=== PATIENT | female | born 1945 | race Caucasian/White ===

== ENCOUNTER 2017-04-04 12:15 | Emergency (ER) | payer MEDICARE, OTHER ==
[2017-04-04] MEDS ORDERED: Metoclopramide 10 MG/2 ML SDV IVPUSH STA (12:54)
[2017-04-04] MEDS ORDERED: HYDROmorphone 1 MG/ML Syringe IVPUSH ONE (13:04)
--- NOTE | 2017-04-04 13:05 | EDM.PDOC ---
ED HPI GENERAL MEDICAL PROBLEM - General Chief Complaint: Lower Extremity Injury/Pain Stated Complaint: [facility] Time Seen by Provider: 04/04/17 12:40 Source of Information: Reports: Patient, Family (daughter) History Limitations: Reports: No Limitations - History of Present Illness INITIAL COMMENTS - FREE TEXT/NARRATIVE: 71-year-old female brought to the hospital by ambulance after she slipped and fell in the parking lot [place]. She fell on the ice to the ground landing she believes on her left medial knee and thigh. This resulted in a severe pain and obvious deformity to the left mid femur. He was unable to get up from the pavement and annulus was summoned by passers by. Patient is a hemodialysis patient. She has insulin-dependent diabetic for 12 years. She denies hitting her head or losing consciousness. She denies any pain in her ribs upper or lower back. Pain is localized to the left thigh. Paramedics had difficulty starting an IV. They did give her fentanyl intranasally. Patient started to have projectile vomiting while in the ED. IV established right hand. Given fentanyl 7.5 mg IV. Onset: Today Onset Date: 04/04/17 Onset Time: 12:00 Duration: Minutes: Location: Reports: Lower Extremity, Left (Obvious deformity left mid shaft of femur.) Quality: Reports: Ache, Sharp, Stabbing Severity: Severe (10 out of 10 pain.) Improves with: Reports: None Worsens with: Reports: Movement Context: Reports: Trauma (Slipped and fell in parking lot on icy surface.). Denies: Activity, Exercise, Lifting, Sick Contact Treatments HAMMERER HELPER: Reports: Other (see below) Other Treatments HAMMERER HELPER: Fentanyl 50 mcg intranasal Left Upper Leg Pain Score (Numeric/FACES): 9 - Related Data Allergies Allergy/AdvReac Type Severity Reaction Status Date / Time NSAIDS (Non-Steroidal Allergy Other Verified 04/04/17 12:23 Anti-Inflamma Past Medical History HEENT History: Reports: Cataract Cardiovascular History: Reports: High Cholesterol, Hypertension Gastrointestinal History: Reports: Cholelithiasis (Previous cholecystectomy.), Other (See Below) (Previous gastric bypass Cody-en-Y procedure.) Genitourinary History: Reports: Dialysis, Other (See Below) (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 She is currently on the waiting list for a another kidney.) Musculoskeletal History: Reports: Back Pain, Chronic, Osteoarthritis, Osteoporosis Endocrine/Metabolic History: Reports: Diabetes, Type II Hematologic History: Reports: Anemia (Secondary to renal failure.) Social & Family History - Living Situation & Occupation Living situation: Reports: Occupation: Retired Review of Systems - Review of Systems Review Of Systems: See Below Constitutional: Reports: Weakness. Denies: Chills, Diaphoresis, Fever Eyes: Reports: Other (Does have some diabetic retinopathy.) Ears: Reports: No Symptoms Nose: Reports: No Symptoms Mouth/Throat: Reports: No Symptoms Respiratory: Reports: Shortness of Breath (Chronically dyspneic. Usually with exertion. No orthopnea or PND). Denies: Cough, Sputum Cardiovascular: Reports: Edema. Denies: Chest Pain, Irregular Heart Rate (Mild in the lower extremities.), Lightheadedness, Palpitations, Syncope GI/Abdominal: Denies: Abdominal Pain, Decreased Appetite Genitourinary: Reports: Other (Still makes a small amount of urine daily she estimates less than half a cup.) Musculoskeletal: Reports: Back Pain, Joint Pain (Knees hips and currently severe pain left thigh.) Skin: Reports: Pallor Neurological: Reports: No Symptoms Psychiatric: Reports: No Symptoms ED EXAM, GENERAL - Physical Exam Exam: See Below Exam Limited By: No Limitations General Appearance: Alert, Moderate Distress (Insignificant amount of pain. Also vomiting during my examination.) Throat/Mouth: Normal Inspection, Normal Oropharynx. No: Normal Lips Head: Atraumatic, Normocephalic, Other (No signs of trauma to the head or neck.) Neck: Normal Inspection, Limited Range of Motion. No: Supple, Lymphadenopathy ( L), Lymphadenopathy (R), Tender Lateral, Tender Midline Respiratory/Chest: Lungs Clear ( good deep breaths.), Respiratory Distress, Decreased Breath Sounds (Mild tachypnea at rest. Decreased breath sounds the posterior 25% lung payne bilaterally. Patient is not taking really) Cardiovascular: Regular Rate, Rhythm, No Gallop, No Murmur, No Rub, Other ( Trace edema around the ankles. Pulses are barely palpable in her feet but they are quite cool to touch as well.). No: Normal Peripheral Pulses Peripheral Pulses: 1+: Posterior Tibial (L), Posterior Tibial (R), Dorsalis Pedis (L), Dorsalis Pedis (R) GI/Abdominal: Distended (Mildly tympanitic to percussion upper abdomen compatible with some aerophagia. Bruising abdominal wall from insulin injection sites.), Abnormal Bowel Sounds (Hypoactive bowel sounds.), Other (Abdomen is obese. There is evidence of multiple surgical procedures. She reports cholecystectomy appendectomy midline lower infraumbilical incision for C- section she's also had a Cody-en-Y gastric bypass procedure in the past.) (Female) Exam: Normal External Exam Back Exam: Other (No palpable deformities on palpation of thoracic and lumbar spine.) Extremities: Pedal Edema (Trace bilaterally), Other (Obvious deformity left femur with evidence of fracture mid shaft with 45 angulation. Any movement causes severe pain.) Neurological: Alert, Oriented, CN II-XII Intact, Normal Cognition, Other Skin Exam: Warm, Dry (Unable to move her left leg at all due to pain.), Intact, Pallor (Mild pallor.) EKG INTERPRETATION EKG Date: 04/04/17 Course - Vital Signs Last Recorded V/S: Last Vital Signs Temp 36.2 C 04/04/17 12:23 Pulse 83 04/04/17 12:23 Resp 20 04/04/17 12:23 BP 140/66 04/04/17 12:23 Pulse Ox 80 L 04/04/17 12:23 - Orders/Labs/Meds Orders: Active Orders 24 hr Category Date Time Status EKG Documentation Completion [RC] STAT Care 04/04/17 13:01 Active Oxygen Therapy [RC] ASDIRECTED Care 04/04/17 13:02 Active Chest 1V Frontal [CR] Stat Exams 04/04/17 13:00 Taken Femur Min 2V Lt [CR] Stat Exams 04/04/17 13:03 Taken ABO/RH TYPE [BBK] Stat Lab 04/04/17 13:26 Received Sodium Chloride 0.9% [Normal Saline] 1,000 ml Med 04/04/17 13:15 Active IV ASDIRECTED Medication Orders Sodium Chloride (Normal Saline) 1,000 mls @ 75 mls/hr IV ASDIRECTED JANI Labs: Laboratory Tests 04/04/17 04/04/17 04/04/17 Range/Units 13:26 13:26 13:26 WBC 7.43 (3.98-10.04) K/mm3 RBC 3.12 L (3.98-5.22) M/mm3 Hgb 10.0 L (11.2-15.7) gm/L Hct 32.3 L (34.1-44.9) % MCV 103.5 H (79.4-94.8) fl MCH 32.1 (25.6-32.2) pg MCHC 31.0 L (32.2-35.5) g/dl RDW Std Deviation 56.6 H (36.4-46.3) fL Plt Count 216 (182-369) K/mm3 MPV 9.2 L (9.4-12.3) fl Neutrophils % (Manual) 61 H (40-60) % Band Neutrophils % 3 (0-10) % Lymphocytes % (Manual) 28 (20-40) % Atypical Lymphs % 0 % Monocytes % (Manual) 4 (2-10) % Eosinophils % (Manual) 4 (0.7-5.8) % Basophils % (Manual) 0 L (0.1-1.2) Platelet Estimate Adequate Polychromasia 1+ slight Anisocytosis 1+ slight Macrocytosis 1+ slight RBC Morph Comment Not Reportable PT 10.6 (8.0-13.0) SECONDS INR 0.97 Sodium 143 (136-145) mEq/L Potassium 4.5 (3.5-5.1) mEq/L Chloride 104 (98-107) mEq/L Carbon Dioxide 30 (21-32) mEq/L Anion Gap 13.5 (5-15) BUN 23 H (7-18) mg/dL Creatinine 3.6 H (0.55-1.02) mg/dL Est Cr Clr Drug Dosing 13.81 mL/min Estimated GFR (MDRD) 13 (>60) mL/min BUN/Creatinine Ratio 6.4 L (14-18) Glucose 117 H (80-115) mg/dL Calcium 8.2 L (8.5-10.1) mg/dL Phosphorus 4.7 (2.6-4.7) mg/dL Magnesium 1.9 (1.8-2.4) mg/dl Total Bilirubin 0.5 (0.2-1.0) mg/dL AST 19 (15-37) U/L ALT 20 (14-59) U/L Alkaline Phosphatase 116 (46-116) U/L Total Protein 6.8 (6.4-8.2) g/dl Albumin 3.3 L (3.4-5.0) g/dl Globulin 3.5 gm/dL Albumin/Globulin Ratio 0.9 L (1-2) Blood Type 04/04/17 Range/Units 13:26 WBC (3.98-10.04) K/mm3 RBC (3.98-5.22) M/mm3 Hgb (11.2-15.7) gm/L Hct (34.1-44.9) % MCV (79.4-94.8) fl MCH (25.6-32.2) pg MCHC (32.2-35.5) g/dl RDW Std Deviation (36.4-46.3) fL Plt Count (182-369) K/mm3 MPV (9.4-12.3) fl Neutrophils % (Manual) (40-60) % Band Neutrophils % (0-10) % Lymphocytes % (Manual) (20-40) % Atypical Lymphs % % Monocytes % (Manual) (2-10) % Eosinophils % (Manual) (0.7-5.8) % Basophils % (Manual) (0.1-1.2) Platelet Estimate Polychromasia Anisocytosis Macrocytosis RBC Morph Comment PT (8.0-13.0) SECONDS INR Sodium (136-145) mEq/L Potassium (3.5-5.1) mEq/L Chloride (98-107) mEq/L Carbon Dioxide (21-32) mEq/L Anion Gap (5-15) BUN (7-18) mg/dL Creatinine (0.55-1.02) mg/dL Est Cr Clr Drug Dosing mL/min Estimated GFR (MDRD) (>60) mL/min BUN/Creatinine Ratio (14-18) Glucose (80-115) mg/dL Calcium (8.5-10.1) mg/dL Phosphorus (2.6-4.7) mg/dL Magnesium (1.8-2.4) mg/dl Total Bilirubin (0.2-1.0) mg/dL AST (15-37) U/L ALT (14-59) U/L Alkaline Phosphatase (46-116) U/L Total Protein (6.4-8.2) g/dl Albumin (3.4-5.0) g/dl Globulin gm/dL Albumin/Globulin Ratio (1-2) Blood Type A POSITIVE Meds: Medications Generic Name Dose Route Start Last Admin Trade Name Freq PRN Reason Stop Dose Admin Sodium Chloride 1,000 mls @ 75 mls/hr 04/04/17 13:15 Normal Saline IV ASDIRECTED JANI Discontinued Medications Generic Name Dose Route Start Last Admin Trade Name Freq PRN Reason Stop Dose Admin Hydromorphone HCl 1 mg 04/04/17 13:04 04/04/17 13:05 Dilaudid IVPUSH 04/04/17 13:05 1 mg ONETIME ONE Administration Metoclopramide HCl 10 mg 04/04/17 12:54 04/04/17 13:00 Reglan IVPUSH 04/04/17 12:55 10 mg ONETIME STA Administration - Radiology Interpretation Free Text/Narrative:: 71-year-old female whom is a hemodialysis patient and an insulin-dependent diabetic for about 12 years presents to the ED after [place] falling [place] at the [facility]. She landed she believes on her left knee and felt a snap and terrible pain in her left femur. She was unable to get up from the icy surface. She did not hit her head and there was no loss of consciousness. She denies any neck pain or upper or lower back pain at the time of my exam. She has had in intranasal fentanyl administered by paramedics for pain relief. Unfortunately did she develop nausea and vomiting detention through my examination. IV was started in her right hand as her veins are tenuous at best. She was given Reglan 7.5 mg IV and will have to be given Dilaudid 1 mg IV for further pain relief. One view chest x-ray ECG and preoperative lab work will be done as well as two-view x-ray of the femur left side. Due to her being a hemodialysis patient she will require transfer to [place] for definitive management. She receives care through the [facility] system. - Re-Assessments/Exams Free Text/Narrative Re-Assessment/Exam: 04/04/12:50: Labs reveal a white count of 7.43 with 61% neutrophils and 3% band cells. Hemoglobin is low at 10.0 with hematocrit of 32.3. MCV is elevated at 103.5 by with her renal disease. Platelets are normal at 216,000. PT is 10.6 INR 0.97. Sodium is 143. Potassium 4.5. Chloride 104. Bicarbonate 30. Anion gap 13.5. The urine is 23. Creatinine is 3.6. EGFR is 13. Glucose is 117 calcium 8.2. Initially a 1.9. Phosphorus 4.7. Liver function normal albumin fraction slightly low at 3.3. Blood type is a positive. 04/04/17 14:30: Spoke with Dr. Cox -hospitalist at [facility] in [place] and he is accepted care. I also did speak with Dr. Huddleston demolition specialist orthopedic surgeon of course identified need for surgical repair. She is quite concrete this time after the last dose of intravenous narcotic. She will be transferred by ground ambulance. Daughter will collect her belongings and her vehicle from the [facility] and then travel to [facility] in [place], [place]. Departure - Departure Time of Disposition: 14:54 Disposition: DC/Tfer to Acute Hospital 02 Condition: Serious Clinical Impression: End stage renal failure on dialysis, Insulin dependent diabetes mellitus Femur fracture, left Qualifiers: Encounter type: initial encounter Femur location: distal Fracture type: closed Fracture morphology: other fracture Qualified Code(s): S72.492A - Other fracture of lower end of left femur, initial encounter for closed fracture Anemia Qualifiers: Anemia type: due to chronic kidney disease - Discharge Information Forms: ED Department Discharge Additional Instructions: 71-year-old female presents to the ED after slipping and falling in the parking lot at the [facility]. She has suffered a fracture of her distal left femur which is closed. However the fractures above the left total knee prosthesis she is also a hemodialysis patient and will require dialysis tomorrow. She is a type II diabetic using insulin for diabetic control. Transferred to [facility] where she receives care under the hospitalist . - My Orders Last 24 Hours: My Active Orders 04/04/17 13:00 Chest 1V Frontal [CR] Stat 04/04/17 13:01 EKG Documentation Completion [RC] STAT 04/04/17 13:02 Oxygen Therapy [RC] ASDIRECTED 04/04/17 13:03 Femur Min 2V Lt [CR] Stat 04/04/17 13:15 Sodium Chloride 0.9% [Normal Saline] 1,000 ml IV ASDIRECTED 04/04/17 13:26 ABO/RH TYPE [BBK] Stat - Assessment/Plan Last 24 Hours: My Active Orders 04/04/17 13:00 Chest 1V Frontal [CR] Stat 04/04/17 13:01 EKG Documentation Completion [RC] STAT 04/04/17 13:02 Oxygen Therapy [RC] ASDIRECTED 04/04/17 13:03 Femur Min 2V Lt [CR] Stat 04/04/17 13:15 Sodium Chloride 0.9% [Normal Saline] 1,000 ml IV ASDIRECTED 04/04/17 13:26 ABO/RH TYPE [BBK] Stat
[2017-04-04] MEDS ORDERED: Sodium Chloride 0.9% 1,000 ML IV SCH (13:15)
--- NOTE | 2017-04-04 15:57 | CR ---
Left femur: Two views of the left femur were obtained. Displaced fracture identified within the distal femur slightly above a left knee prosthesis. Displacement by a shaft width is seen. No additional fracture is seen within the femur. Mild joint space narrowing is noted within the left hip. Impression: 1. Displaced distal femur fracture. Diagnostic code #3
--- NOTE | 2017-04-04 15:57 | CR ---
Chest: Supine view of the chest was obtained. Comparison: No previous study. Poor inspiratory film is noted. Increased density is noted behind the left heart. Areas of atelectasis are noted within both midlungs. Heart size and mediastinum are within normal limits for supine technique. Bony structures are grossly intact. Impression: 1. Poor inspiratory study. 2. Parenchymal density behind the left heart. Difficult to exclude pneumonia. If no infectious symptoms are present this could represent an area of scarring from aspiration. 3. Atelectasis within both midlungs. Diagnostic code #3
== END 2017-04-04 15:02 ==
LOC: JD.ED 12:15
DX: S72.492A Other fracture of lower end of left femur, initial encounter for closed fracture (principal); E11.22 Type 2 diabetes mellitus with diabetic chronic kidney disease; N18.6 End stage renal disease; D63.1 Anemia in chronic kidney disease; E78.00 Pure hypercholesterolemia, unspecified; I10 Essential (primary) hypertension; Z88.8 Allergy status to other drugs, medicaments and biological substances; W01.0XXA Fall on same level from slipping, tripping and stumbling without subsequent striking against object, initial encounter
CPT/HCPCS: 36415; 71045; 73552; 80053; 83735; 84100; 85025; 85610; 86900; 86901; 96374; 96375; 99285; J1170; J2765

== ENCOUNTER 2019-09-14 08:47 | Emergency (ER) | payer MEDICARE, OTHER, MEDICAID ==
--- NOTE | 2019-09-14 09:00 | EDM.PDOC ---
ED HPI GENERAL MEDICAL PROBLEM - General Chief Complaint: Trauma Stated Complaint: [facility] Time Seen by Provider: 09/14/19 08:53 Source of Information: Reports: Patient, EMS History Limitations: Reports: No Limitations - History of Present Illness INITIAL COMMENTS - FREE TEXT/NARRATIVE: The patient presents by [facility] for a fall. She stood up from her w heel chair and she was going to move it out of a hole it got in and she turned and fell. She has pain to her right hip and right wrist. She is on 2 blood thinners. She does not think she hit her head. She has no headache, neck pain, chest pain or abdominal pain. She has diabetes and has a history of renal failure with dialysis. She had a kidney transplant over 2 years ago. Onset: Sudden Duration: Minutes: Location: Reports: Upper Extremity, Right (wrist), Lower Extremity, Right (hip) Quality: Reports: Sharp Severity: Moderate Improves with: Reports: Immobilization Worsens with: Reports: Movement Context: Reports: Trauma Associated Symptoms: Reports: No Other Symptoms Right Hip Pain Score (Numeric/FACES): 7 - Related Data Allergies Allergy/AdvReac Type Severity Reaction Status Date / Time NSAIDS (Non-Steroidal Allergy Other Verified 09/14/19 09:03 Anti-Inflamma Home Meds: Home Meds Docusate Sodium [Dulcolax Stool Softener] 100 mg PO BID PRN 04/04/17 [History] Gabapentin [Neurontin] 300 mg PO DAILY 04/04/17 [History] Sertraline [Zoloft] 25 mg PO DAILY 04/04/17 [History] atorvaSTATin [Lipitor] 40 mg PO DAILY 04/04/17 [History] diphenhydrAMINE [Benadryl] 50 mg PO BEDTIME PRN 04/04/17 [History] Acetaminophen [Tylenol] 650 mg PO Q6H PRN 09/16/18 [History] Albuterol [Ventolin HFA] 2 puff INH Q4H PRN 09/16/18 [History] Apixaban [Eliquis] 2.5 mg PO BID 09/16/18 [History] Benzonatate 100 mg PO QID PRN 09/16/18 [History] Clopidogrel Bisulfate [Clopidogrel] 75 mg PO DAILY 09/16/18 [History] Cyclobenzaprine [Flexeril] 5 mg PO TID PRN 09/16/18 [History] Fluticasone Propionate [Flonase] 1 dose NASBOTH BID 09/16/18 [History] Ipratropium [Atrovent 0.06% Nasal [place]] 2 spray NASBOTH TID 09/16/18 [History] Latanoprost 1 drop EYEBOTH DAILY 09/16/18 [History] Levothyroxine Sodium 137 mcg PO DAILY 09/16/18 [History] Melatonin 10 mg PO DAILY 09/16/18 [History] Metoclopramide HCl 5 mg PO QID PRN 09/16/18 [History] Pantoprazole Sodium 40 mg PO DAILY 09/16/18 [History] Sulfamethoxazole/Trimethoprim [Bactrim Ds Tablet] 1 tab PO DAILY 09/16/18 [His tory] Tacrolimus 1.5 mg PO BID 09/16/18 [History] Timolol Maleate 1 drop EYEBOTH BEDTIME 09/16/18 [History] azaTHIOprine [Imuran] 150 mg PO DAILY 09/16/18 [History] carvediloL [Carvedilol] 12.5 mg PO BID 09/16/18 [History] ondansetron HCL [Zofran] 4 mg PO Q4H PRN 09/16/18 [History] predniSONE [Prednisone] 5 mg PO DAILY 09/16/18 [History] traMADol HCl [Tramadol HCl] 50 mg PO Q6H PRN 09/16/18 [History] Clopidogrel Bisulfate [Plavix] 75 mg PO DAILY 09/14/19 [History] Insulin Glarg,Human.Rec.Analog [Lantus] 25 - 30 unit SQ BEDTIME 09/14/19 [History] Past Medical History HEENT History: Reports: Cataract, Other (See Below) Other HEENT History: retinal hemorrhage Cardiovascular History: Reports: Blood Clots/VTE/DVT, CAD, High Cholesterol, Hypertension Respiratory History: Reports: Intubation, Difficult, Other (See Below) Other Respiratory History: hypoxemia Gastrointestinal History: Reports: Cholelithiasis, Chronic Constipation, GERD, Other (See Below) Genitourinary History: Reports: Acute Renal Failure, Dialysis, Other (See Below) Other Genitourinary History: kidney transplant, end stage renal disease, UTI, oxalate nephropathy, left kidney transplant [facility] History: Reports: None Musculoskeletal History: Reports: Back Pain, Chronic, Osteoarthritis, Osteoporosis Neurological History: Reports: CVA, Other (See Below) Other Neuro History: cerebrovascular disease, monoplegia Psychiatric History: Reports: Anxiety, Depression Endocrine/Metabolic History: Reports: Diabetes, Type II, Hypothyroidism, Obesity/BMI 30+ Other Endocrine/Metabolic History: dialysis pt. Hematologic History: Reports: Anemia, Other (See Below) Other Hematologic History: elevated phosphate Immunologic History: Reports: None Oncologic (Cancer) History: Reports: None Dermatologic History: Reports: None - Past Surgical History Head Surgeries/Procedures: Reports: None HEENT Surgical History: Reports: Detached Retina, Eye Surgery, Tonsillectomy Cardiovascular Surgical History: Reports: Vascular Surgery Respiratory Surgical History: Reports: None GI Surgical History: Reports: Appendectomy, Bariatric Procedure, Colonoscopy, EGD, Other (See Below) Other GI Surgeries/Procedures: panniculectomy Endocrine Surgical History: Reports: Thyroidectomy Neurological Surgical History: Reports: None Musculoskeletal Surgical History: Reports: Knee Replacement, ORIF Oncologic Surgical History: Reports: None Dermatological Surgical History: Reports: None Social & Family History - Caffeine Use Caffeine Use: Reports: Soda, Tea - Living Situation & Occupation Living situation: Reports: Occupation: Retired Review of Systems - Review of Systems Review Of Systems: See Below Constitutional: Reports: No Symptoms Eyes: Reports: No Symptoms Ears: Reports: No Symptoms Nose: Reports: No Symptoms Mouth/Throat: Reports: No Symptoms Respiratory: Reports: No Symptoms Cardiovascular: Reports: No Symptoms GI/Abdominal: Reports: No Symptoms Genitourinary: Reports: No Symptoms Musculoskeletal: Reports: Other (right wrist pain and right hip pain) ED EXAM, GENERAL - Physical Exam Exam: See Below Exam Limited By: No Limitations General Appearance: Alert, No Apparent Distress Ears: Normal External Exam Nose: Normal Inspection Head: Atraumatic, Normocephalic Neck: Normal Inspection, Supple, Non-Tender Respiratory/Chest: No Respiratory Distress, Lungs Clear, Normal Breath Sounds Cardiovascular: Regular Rate, Rhythm, No Edema, No Murmur GI/Abdominal: Soft, Non-Tender, No Organomegaly, No Mass Extremities: Other (Pain upon palpation to the right wrist. Good sensation and pulses distally. Pain upon palpation to the right hip. Good sensation and puls es distally.) ED TRAUMA PROCEDURES - Splinting Right Upper Extremity Splint Site: Wrist Pre-Procedure NV Status: Normal Post-Procedure NV Status: Normal Splint Material: Fiberglass Splint Design: Volar Applied & Form Fitted By: Provider Provider Post-Splint Application NV Check: NV Status Normal, Good Position Complications: No Course - Vital Signs Last Recorded V/S: Last Vital Signs Temp 96.4 F L 09/14/19 08:54 Pulse 68 09/14/19 08:54 Resp 16 09/14/19 08:54 BP 190/89 H 09/14/19 08:54 Pulse Ox 93 L 09/14/19 08:54 - Orders/Labs/Meds Orders: Active Orders 24 hr Category Date Time Status Hip Min 2V or 3V w Pelvis Rt [CR] Stat Exams 09/14/19 08:53 Taken Wrist Comp Min 3V Rt [CR] Stat Exams 09/14/19 08:53 Taken HYDROmorphone [Dilaudid] Med 09/14/19 09:40 Once 0.5 mg IVPUSH ONETIME ONE Ondansetron [Zofran] Med 09/14/19 09:39 Once 4 mg IVPUSH ONETIME ONE Medication Orders Hydromorphone HCl (Dilaudid) 0.5 mg IVPUSH ONETIME ONE Stop: 09/14/19 09:41 Ondansetron HCl (Zofran) 4 mg IVPUSH ONETIME ONE Stop: 09/14/19 09:40 Labs: Laboratory Tests 09/14/19 09/14/19 09/14/19 Range/Units 08:55 08:55 08:55 WBC 4.86 (3.98-10.04) K/mm3 RBC 3.52 L (3.98-5.22) M/mm3 Hgb 12.9 D (11.2-15.7) gm/dl Hct 39.9 (34.1-44.9) % MCV 113.4 H D (79.4-94.8) fl MCH 36.6 H (25.6-32.2) pg MCHC 32.3 (32.2-35.5) g/dl RDW Std Deviation 60.4 H (36.4-46.3) fL Plt Count 215 (182-369) K/mm3 MPV 9.2 L (9.4-12.3) fl Neut % (Auto) 56.2 (34.0-71.1) % Lymph % (Auto) 30.2 (19.3-51.7) % Rogers % (Auto) 9.5 (4.7-12.5) % Eos % (Auto) 2.3 (0.7-5.8) Baso % (Auto) 1.0 (0.1-1.2) % Neut # (Auto) 2.73 (1.56-6.13) K/mm3 Lymph # (Auto) 1.47 (1.18-3.74) K/mm3 Rogers # (Auto) 0.46 H (0.24-0.36) K/mm3 Eos # (Auto) 0.11 (0.04-0.36) K/mm3 Baso # (Auto) 0.05 (0.01-0.08) K/mm3 Manual Slide Review Abnormal smear PT 11.2 (9.7-12.0) SECONDS INR 1.03 APTT 26 (22-31) SECONDS Sodium 143 (136-145) mEq/L Potassium 4.2 (3.5-5.1) mEq/L Chloride 109 H (98-107) mEq/L Carbon Dioxide 26 (21-32) mEq/L Anion Gap 12.2 (5-15) BUN 18 (7-18) mg/dL Creatinine 1.0 D (0.55-1.02) mg/dL Est Cr Clr Drug Dosing 51.30 mL/min Estimated GFR (MDRD) 55 (>60) mL/min BUN/Creatinine Ratio 18.0 (14-18) Glucose 130 H (83-115) mg/dL Calcium 8.6 (8.5-10.1) mg/dL Total Bilirubin 0.8 (0.2-1.0) mg/dL AST 23 (15-37) U/L ALT 25 (14-59) U/L Alkaline Phosphatase 90 (46-116) U/L Total Protein 6.5 (6.4-8.2) g/dl Albumin 3.7 (3.4-5.0) g/dl Globulin 2.8 gm/dL Albumin/Globulin Ratio 1.3 (1-2) Meds: Medications Generic Name Dose Route Start Last Admin Trade Name Freq PRN Reason Stop Dose Admin Hydromorphone HCl 0.5 mg 09/14/19 09:40 Dilaudid IVPUSH 09/14/19 09:41 ONETIME ONE Ondansetron HCl 4 mg 09/14/19 09:39 Zofran IVPUSH 09/14/19 09:40 ONETIME ONE - Re-Assessments/Exams Free Text/Narrative Re-Assessment/Exam: 09/14/19 09:01 I ordered an IV saline lock, labs, CT of her head, and x-ray of her right hip and right wrist. 09/14/19 09:42 Her CBC and CMP look good. Her PT and PTT look good. She is on plavix and eliquis and the CT of her head shows mild senescent change. Nothing acute is seen. She does have a distal radius fracture and a fracture of her hip through the femur and lesser troch. She has nausea and more pain after moving for the films. I ordered zofran 4mg IV and dilaudid 0.5mg IV. We have no orthopedic coverage this weekend and she has a complicated history of kidney transplant. 09/14/19 09:52 I called [facility] in [place] and talked with Dr Olivia the orthopedic surgeon neon molder and he accepted the patient. I also talked with Dr Delatorre the hospitalist and he wanted her to have a dose of coreg because her BP is high. Departure - Departure Time of Disposition: 09:55 Disposition: DC/Tfer to Acute Hospital 02 Condition: Fair Clinical Impression: Fall Qualifiers: Encounter type: initial encounter Qualified Code(s): W19.XXXA - Unspecified fall, initial encounter Closed right hip fracture Qualifiers: Encounter type: initial encounter Qualified Code(s): S72.001A - Fracture of unspecified part of neck of right femur, initial encounter for closed fracture Wrist fracture, right Qualifiers: Encounter type: initial encounter Fracture type: closed Qualified Code(s): S62.101A - Fracture of unspecified carpal bone, right wrist, initial encounter for closed fracture - Discharge Information Referrals: Valdez Mendoza MD [Primary Care Provider] - Forms: ED Department Discharge Sepsis Event Note (ED) - Focused Exam Vital Signs: Vital Signs Temp Pulse Resp BP Pulse Ox 09/14/19 08:54 96.4 F L 68 16 190/89 H 93 L - My Orders Last 24 Hours: My Active Orders 09/14/19 08:53 Hip Min 2V or 3V w Pelvis Rt [CR] Stat Wrist Comp Min 3V Rt [CR] Stat 09/14/19 09:39 Ondansetron [Zofran] 4 mg IVPUSH ONETIME ONE 09/14/19 09:40 HYDROmorphone [Dilaudid] 0.5 mg IVPUSH ONETIME ONE - Assessment/Plan Last 24 Hours: My Active Orders 09/14/19 08:53 Hip Min 2V or 3V w Pelvis Rt [CR] Stat Wrist Comp Min 3V Rt [CR] Stat 09/14/19 09:39 Ondansetron [Zofran] 4 mg IVPUSH ONETIME ONE 09/14/19 09:40 HYDROmorphone [Dilaudid] 0.5 mg IVPUSH ONETIME ONE
--- NOTE | 2019-09-14 09:22 | CT ---
Head CT Technique: Multiple axial sections through the brain were obtained. Intravenous contrast was not utilized. Comparison: No prior intracranial imaging is available. Findings: Ventricles along with basal cisterns and sulci over the convexities are mildly prominent. Minimal diminished density scattered within the periventricular and subcortical white matter which is most likely due to small vessel ischemic demyelination change. Minimal basal ganglia calcification is noted. No evidence of intracranial hemorrhage. No midline shift or mass-effect is seen. Bone window settings were reviewed. No acute paranasal sinus finding is seen. No acute mastoid sinus finding is seen. No acute calvarial abnormality is identified. Impression: 1. Mild senescent change as described above. Diagnostic code #1 This report was dictated in MDT
[2019-09-14] MEDS ORDERED: Ondansetron 4 MG/2 ML SDV IVPUSH ONE (09:39)
[2019-09-14] MEDS ORDERED: HYDROmorphone 0.5 MG/0.5 ML Syringe IVPUSH ONE (09:40)
--- NOTE | 2019-09-14 09:40 | CR ---
Pelvis and right hip: AP view of the pelvis was obtained as well as AP and crosstable lateral views of the right hip. Displaced fracture is noted within the right hip which involves the intertrochanteric and subtrochanteric area. Mild joint space narrowing is noted within both hips. Osteopenia is present. Surgical clips are seen within the pelvis. Vascular calcification is seen. Impression: 1. Mildly displaced right-sided hip fracture as noted above. 2. Other findings which are nonacute as noted above. Diagnostic code #3 This report was dictated in MDT
[2019-09-14] MEDS ORDERED: Ondansetron 4 MG/2 ML SDV ONE (09:41)
--- NOTE | 2019-09-14 09:42 | CR ---
Right wrist: 4 views of the right wrist were obtained. Comparison: No right wrist study is available. Distal radial fracture is noted. Posterior impaction is seen. Fracture involving the ulnar styloid process is noted. Minimal articular extension seen of the radial fracture. Joint space narrowing noted off the distal navicular bone. Soft tissue swelling and vascular calcification is seen. Bony structures are osteopenic. Impression: 1. Mildly impacted distal right radial fracture with minimal articular extension. 2. Ulnar styloid avulsion fracture. 3. Soft tissue swelling. 4. Other nonacute findings as noted above. Diagnostic code #3 This report was dictated in MDT
[2019-09-14] MEDS ORDERED: Carvedilol 12.5 MG Tab PO ONE (09:52)
== END 2019-09-14 10:50 ==
LOC: JD.ED 08:47
DX: S72.141A Displaced intertrochanteric fracture of right femur, initial encounter for closed fracture (principal); S72.21XA Displaced subtrochanteric fracture of right femur, initial encounter for closed fracture; S52.501A Unspecified fracture of the lower end of right radius, initial encounter for closed fracture; S52.611A Displaced fracture of right ulna styloid process, initial encounter for closed fracture; I25.10 Atherosclerotic heart disease of native coronary artery without angina pectoris; E78.00 Pure hypercholesterolemia, unspecified; K21.9 Gastro-esophageal reflux disease without esophagitis; I12.0 Hypertensive chronic kidney disease with stage 5 chronic kidney disease or end stage renal disease; E11.22 Type 2 diabetes mellitus with diabetic chronic kidney disease; N18.6 End stage renal disease; Z99.2 Dependence on renal dialysis; D63.1 Anemia in chronic kidney disease; F41.9 Anxiety disorder, unspecified; F32.9 Major depressive disorder, single episode, unspecified; E03.9 Hypothyroidism, unspecified; E66.9 Obesity, unspecified; Z68.31 Body mass index [BMI] 31.0-31.9, adult; Z88.6 Allergy status to analgesic agent; Z79.01 Long term (current) use of anticoagulants; Z79.02 Long term (current) use of antithrombotics/antiplatelets; Z79.899 Other long term (current) drug therapy; Z79.4 Long term (current) use of insulin; W19.XXXA Unspecified fall, initial encounter
CPT/HCPCS: 29125; 36415; 70450; 73110; 73502; 80053; 85025; 85610; 85730; 96374; 96375; 99285; A9270; J1170; J2405

== ENCOUNTER 2020-04-30 11:55 | Emergency (ER) | payer MEDICARE, OTHER, MEDICAID ==
--- NOTE | 2020-04-30 13:06 | CR ---
Chest: Portable view of the chest was obtained. Comparison: Prior chest x-ray of 04/04/17. Slight density is noted within the left lower lung. Minimal area of scarring is seen within the right mid to lower lung. Upper lungs are clear. Heart size and mediastinum are normal. Impression: 1. Mild density within the left lung base. Please correlate if patient has infectious symptoms for this to represent a small area of pneumonia. 2. Other findings as noted above which are incidental. Diagnostic code #3
--- NOTE | 2020-04-30 13:33 | CR ---
Right shoulder: 3 views of the right shoulder were obtained. Comparison: No prior right shoulder study is available. There is deformity of the distal clavicle being seen. This most likely represents a small distal clavicular fracture. Glenohumeral joint appears within normal limits. Lucency is noted within the proximal humerus. No additional abnormality is appreciated. Impression: 1. Lucency within the proximal humerus. This could represent focal osteopenia but difficult to exclude an osteolytic lesion. Please consider CT to further evaluate. 2. Small distal right clavicle fracture is noted. Diagnostic code #9
--- NOTE | 2020-04-30 13:39 | EDM.PDOC ---
ED HPI GENERAL MEDICAL PROBLEM - General Chief Complaint: Neuro Symptoms/Deficits Stated Complaint: INCOHERENT EPISODE AT REHAB Time Seen by Provider: 04/30/20 12:14 Source of Information: Reports: Patient History Limitations: Reports: No Limitations, Other (ED vital signs reveal a temp of 96.8, pulse of 84, respiratory rate of 18, blood pressure 163/86, pulse ox 97% on room air.) - History of Present Illness INITIAL COMMENTS - FREE TEXT/NARRATIVE: 74-year-old female presents to the emergency department complaints of a syncopal episode while at physical therapy this morning. Physical therapy reports that she was sitting up in the chair and slumped over and went unresponsive for a short bit. She came to and was very diaphoretic. Patient states she does have a history of hypoglycemic episodes and this is identical to her episodes in the past. They gave her some juice and crackers and the diaphoresis resolved as well as decreased responsiveness. She was then sent over here to be evaluated. 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 - Related Data Allergies Allergy/AdvReac Type Severity Reaction Status Date / Time NSAIDS (Non-Steroidal Allergy Other Verified 04/30/20 12:14 Anti-Inflamma Home Meds: Home Meds Docusate Sodium [Dulcolax Stool Softener] 100 mg PO BID PRN 04/04/17 [History] Gabapentin [Neurontin] 300 mg PO DAILY 04/04/17 [History] Sertraline [Zoloft] 25 mg PO DAILY 04/04/17 [History] atorvaSTATin [Lipitor] 40 mg PO DAILY 04/04/17 [History] diphenhydrAMINE [Benadryl] 50 mg PO BEDTIME PRN 04/04/17 [History] Acetaminophen [Tylenol] 650 mg PO Q6H PRN 09/16/18 [History] Albuterol [Ventolin HFA] 2 puff INH Q4H PRN 09/16/18 [History] Apixaban [Eliquis] 2.5 mg PO BID 09/16/18 [History] Benzonatate 100 mg PO QID PRN 09/16/18 [History] Clopidogrel Bisulfate [Clopidogrel] 75 mg PO DAILY 09/16/18 [History] Cyclobenzaprine [Flexeril] 5 mg PO TID PRN 09/16/18 [History] Fluticasone Propionate [Flonase] 1 dose NASBOTH BID 09/16/18 [History] Ipratropium [Atrovent 0.06% Nasal [place]] 2 spray NASBOTH TID 09/16/18 [History] Latanoprost 1 drop EYEBOTH DAILY 09/16/18 [History] Levothyroxine Sodium 137 mcg PO DAILY 09/16/18 [History] Melatonin 10 mg PO DAILY 09/16/18 [History] Metoclopramide HCl 5 mg PO QID PRN 09/16/18 [History] Pantoprazole Sodium 40 mg PO DAILY 09/16/18 [History] Sulfamethoxazole/Trimethoprim [Bactrim Ds Tablet] 1 tab PO DAILY 09/16/18 [History] Tacrolimus 1.5 mg PO BID 09/16/18 [History] Timolol Maleate 1 drop EYEBOTH BEDTIME 09/16/18 [History] azaTHIOprine [Imuran] 150 mg PO DAILY 09/16/18 [History] carvediloL [Carvedilol] 12.5 mg PO BID 09/16/18 [History] ondansetron HCL [Zofran] 4 mg PO Q4H PRN 09/16/18 [History] predniSONE [Prednisone] 5 mg PO DAILY 09/16/18 [History] traMADol HCl [Tramadol HCl] 50 mg PO Q6H PRN 09/16/18 [History] Clopidogrel Bisulfate [Plavix] 75 mg PO DAILY 09/14/19 [History] Insulin Glarg,Human.Rec.Analog [Lantus] 25 - 30 unit SQ BEDTIME 09/14/19 [History] Past Medical History HEENT History: Reports: Cataract, Other (See Below) Other HEENT History: retinal hemorrhage Cardiovascular History: Reports: Blood Clots/VTE/DVT, CAD, High Cholesterol, Hypertension Respiratory History: Reports: Intubation, Difficult, Other (See Below) Other Respiratory History: hypoxemia Gastrointestinal History: Reports: Cholelithiasis, Chronic Constipation, GERD Genitourinary History: Reports: Acute Renal Failure, Dialysis, Other (See Below) Other Genitourinary History: R kidney transplant, end stage renal disease, UTI, oxalate nephropathy, left kidney transplant 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 Hematologic History: Reports: Anemia, Other (See Below) Other Hematologic History: elevated phosphate Immunologic History: Reports: None Oncologic (Cancer) History: Reports: None Dermatologic History: Reports: None - Infectious Disease History Infectious Disease History: Reports: Chicken Pox, Measles, Mumps - Past Surgical History Head Surgeries/Procedures: Reports: None HEENT Surgical History: Reports: Detached Retina, Eye Surgery, Tonsillectomy Cardiovascular Surgical History: Reports: Vascular Surgery GI Surgical History: Reports: Appendectomy, Bariatric Procedure, Colonoscopy, EGD, Other (See Below) Other GI Surgeries/Procedures: panniculectomy Female Surgical History: Reports: Hysterectomy Endocrine Surgical History: Reports: Thyroidectomy Musculoskeletal Surgical History: Reports: Knee Replacement, ORIF Other Musculoskeletal Surgeries/Procedures:: DVT LLE Social & Family History - Family History Family Medical History: No Pertinent Family History - Tobacco Use Tobacco Use Status *Q: Never Tobacco User Second Hand Smoke Exposure: No - Caffeine Use Caffeine Use: Reports: Soda - Recreational Drug Use Recreational Drug Use: No - Living Situation & Occupation Living situation: Reports: Occupation: Retired ED ROS GENERAL - Review of Systems Review Of Systems: See Below Constitutional: Reports: No Symptoms. Denies: Fever, Chills, Diaphoresis HEENT: Reports: No Symptoms. Denies: Vision Change Respiratory: Reports: No Symptoms. Denies: Cough, Sputum Cardiovascular: Reports: No Symptoms Endocrine: Reports: Low Glucose GI/Abdominal: Reports: No Symptoms : Reports: No Symptoms Musculoskeletal: Reports: Other (right clavicle pain) Skin: Reports: Bruising (right clavicle) Neurological: Reports: No Symptoms Psychiatric: Reports: No Symptoms Hematologic/Lymphatic: Reports: No Symptoms Immunologic: Reports: No Symptoms - Physical Exam Exam: See Below Exam Limited By: No Limitations General Appearance: Alert, WD/WN, No Apparent Distress Eye Exam: Bilateral Eye: PERRL Ears: Hearing Grossly Normal Nose: Normal Inspection Throat/Mouth: Normal Inspection, Normal Lips, Normal Voice, No Airway Compromise Head Exam: Atraumatic, Normocephalic Neck: Normal Inspection, Supple, Non-Tender, Full Range of Motion Respiratory/Chest: No Respiratory Distress, Lungs Clear, Normal Breath Sounds, No Accessory Muscle Use, Chest Non-Tender Cardiovascular: Normal Peripheral Pulses, Regular Rate, Rhythm, No Edema, No Murmur GI/Abdominal: Normal Bowel Sounds, Soft, Non-Tender, No Distention (Female) Exam: Deferred Rectal (Female) Exam: Deferred Neuro Exam (Abbreviated): Alert, Oriented, Normal Cognition Back Exam: Normal Inspection, Full Range of Motion Extremities: Normal Inspection, Normal Capillary Refill. No: Normal Range of Motion (Creased range of motion to right upper extremity due to shoulder pain sustained from a fall 3 days ago. Is unable to raise her arm laterally due to pain.) Psychiatric: Normal Affect, Normal Mood Skin Exam: Warm, Dry, Intact, Normal Color, No Rash Course - Vital Signs Text/Narrative:: 74-year-old female with complaints of a syncopal episode while at physical therapy this morning. She states she does have a history of hypoglycemic episodes as she is an insulin-dependent diabetic. She took her insulin last night and did not eat anything this morning and then went to physical therapy. Physical therapy reported that she was sitting in the chair and became very diaphoretic and then slumped over for short bit. When she came to she remained diaphoretic they gave her some juice and crackers and this resolved. Bedside blood glucose while assessing the patient was 66. I have ordered nursing staff to get her some food and drink. Patient states she feels 100% better. However she states she did fall 3 days ago at home and she does have bruising noted to the right clavicular area. I have ordered a chest x-ray of the right shoulder. I have also ordered baseline lab work and a chest x-ray on this patient. Last Recorded V/S: Last Vital Signs Temp 96.8 F L 04/30/20 12:06 Pulse 84 04/30/20 12:06 Resp 18 04/30/20 12:06 BP 163/86 H 04/30/20 12:06 Pulse Ox 97 04/30/20 12:06 - Orders/Labs/Meds Orders: Active Orders 24 hr Category Date Time Status EKG Documentation Completion [RC] AM Care 04/30/20 12:44 Active DME for Discharge [COMM] Stat Oth 04/30/20 14:56 Ordered Labs: Laboratory Tests 04/30/20 04/30/20 04/30/20 Range/Units 12:29 13:04 13:04 WBC 5.67 (3.98-10.04) K/mm3 RBC 3.70 L (3.98-5.22) M/mm3 Hgb 13.0 (11.2-15.7) gm/dl Hct 40.7 (34.1-44.9) % MCV 110.0 H D (79.4-94.8) fl MCH 35.1 H (25.6-32.2) pg MCHC 31.9 L (32.2-35.5) g/dl RDW Std Deviation 58.2 H (36.4-46.3) fL Plt Count 255 (182-369) K/mm3 MPV 9.0 L (9.4-12.3) fl Neut % (Auto) 64.0 (34.0-71.1) % Lymph % (Auto) 24.3 (19.3-51.7) % [place] % (Auto) 9.9 (4.7-12.5) % Eos % (Auto) 0.9 (0.7-5.8) Baso % (Auto) 0.4 (0.1-1.2) % Neut # (Auto) 3.63 (1.56-6.13) K/mm3 Lymph # (Auto) 1.38 (1.18-3.74) K/mm3 [place] # (Auto) 0.56 H (0.24-0.36) K/mm3 Eos # (Auto) 0.05 (0.04-0.36) K/mm3 Baso # (Auto) 0.02 (0.01-0.08) K/mm3 Manual Slide Review Abnormal smear Sodium 138 (136-145) mEq/L Potassium 4.5 (3.5-5.1) mEq/L Chloride 102 (98-107) mEq/L Carbon Dioxide 28 (21-32) mEq/L Anion Gap 12.5 (5-15) BUN 15 (7-18) mg/dL Creatinine 0.7 (0.55-1.02) mg/dL Est Cr Clr Drug Dosing 65.37 mL/min Estimated GFR (MDRD) > 60 (>60) mL/min BUN/Creatinine Ratio 21.4 H (14-18) Glucose 81 L (83-115) mg/dL POC Glucose 66 L (83-110) mg/dL Calcium 8.9 (8.5-10.1) mg/dL Magnesium 2.2 (1.8-2.4) mg/dl Total Bilirubin 0.9 (0.2-1.0) mg/dL AST 15 (15-37) U/L ALT 16 (14-59) U/L Alkaline Phosphatase 94 (46-116) U/L Troponin I < 0.017 (0.00-0.056) ng/mL Total Protein 6.7 (6.4-8.2) g/dl Albumin 3.4 (3.4-5.0) g/dl Globulin 3.3 gm/dL Albumin/Globulin Ratio 1.0 (1-2) - Re-Assessments/Exams Free Text/Narrative Re-Assessment/Exam: 04/30/20 13:37 Radiologist impression right shoulder 3 view: 1. Lucency within the proximal humerus. This could represent focal osteopenia but difficult to exclude an osteolytic lesion. Please consider CT to further evaluate. 2. Small distal right clavicle fracture is noted. Radiologist impression portable view of the chest: 1. Mild density within the l eft lung base. Please correlate if patient has infectious symptoms for this to represent a small area of pneumonia. 2. Other findings as noted above which are incidental. 04/30/20 14:57 Patient denies any recent cough, fever, or chills. 04/30/20 14:59 Labs reveal a WBC of 5.67, hemoglobin 13.0, hematocrit 40.7, sodium 138, potassium 4.5, anion gap 12.5, BUN 15, creatinine 0.7, glucose 81, magnesium 2.2, troponin less than 0.017. Patient's episode today is likely due to hypoglycemic event. However, she will be sent home with a sling and swath for her right shoulder and recommendations to follow-up with Dr. Julio regarding that. 04/30/20 15:04 Pt states that she sees Dr. Ortiz, her orthopedic surgeon. She requests she follow up with him regarding her clavicle fracture. I will push the Xrays to [place]. Departure - Departure Time of Disposition: 15:10 Disposition: Home, Self-Care 01 Condition: Fair Clinical Impression: Hypoglycemic episode in patient with diabetes mellitus Right clavicle fracture Qualifiers: Encounter type: initial encounter Clavicle location: unspecified part of clavicle Fracture type: closed Fracture alignment: nondisplaced Qualified Code(s): S42.001A - Fracture of unspecified part of right clavicle, initial encounter for closed fracture - Discharge Information Instructions: Clavicle Fracture, [id number], Hypoglycemia, [id number] Referrals: Valdez Mendoza MD [Primary Care Provider] - Forms: ED Department Discharge Additional Instructions: You were seen in the emergency department today with complaints of a syncopal episode that occurred while you are at physical therapy. You stated that you are an insulin-dependent diabetic and you took her insulin last night before bed and did not eat before going to physical therapy this morning. You also stated that you have had previous episodes of this in the past. Lab work was completed and this was unremarkable. EKG was unremarkable. Chest x-ray was completed as well which showed some density in the left lung base however you have denied any recent fever, chills, or cough. It is unlikely you have pneumonia. X-ray of the right clavicle revealed a fracture. You will be placed in a sling and swath. Recommend that you keep this in place while awake during the day. And follow-up with your already scheduled orthopedic appointment next week. I have pushed the x-ray films of your clavicle to [facility] so that he can review them. Always remember to eat a light snack first thing in the morning. Sepsis Event Note (ED) - Evaluation Sepsis Screening Result: No Definite Risk - Focused Exam Vital Signs: Vital Signs Temp Pulse Resp BP Pulse Ox 04/30/20 12:06 96.8 F L 84 18 163/86 H 97 - My Orders Last 24 Hours: My Active Orders 04/30/20 12:44 EKG Documentation Completion [RC] AM 04/30/20 14:56 DME for Discharge [COMM] Stat - Assessment/Plan Last 24 Hours: My Active Orders 04/30/20 12:44 EKG Documentation Completion [RC] AM 04/30/20 14:56 DME for Discharge [COMM] Stat
== END 2020-04-30 15:37 | disposition home or self-care (01) ==
LOC: JD.ED 11:55
DX: E11.649 Type 2 diabetes mellitus with hypoglycemia without coma (principal); S42.034A Nondisplaced fracture of lateral end of right clavicle, initial encounter for closed fracture; E78.00 Pure hypercholesterolemia, unspecified; K21.9 Gastro-esophageal reflux disease without esophagitis; M19.90 Unspecified osteoarthritis, unspecified site; E11.22 Type 2 diabetes mellitus with diabetic chronic kidney disease; I12.0 Hypertensive chronic kidney disease with stage 5 chronic kidney disease or end stage renal disease; N18.6 End stage renal disease; E03.9 Hypothyroidism, unspecified; E66.9 Obesity, unspecified; Z68.34 Body mass index [BMI] 34.0-34.9, adult; Z79.82 Long term (current) use of aspirin; Z79.01 Long term (current) use of anticoagulants; Z79.02 Long term (current) use of antithrombotics/antiplatelets; Z86.73 Personal history of transient ischemic attack (TIA), and cerebral infarction without residual deficits; I25.10 Atherosclerotic heart disease of native coronary artery without angina pectoris; Z79.899 Other long term (current) drug therapy; Z86.718 Personal history of other venous thrombosis and embolism; Z79.4 Long term (current) use of insulin; W07.XXXA Fall from chair, initial encounter
CPT/HCPCS: 36415; 71045; 71045-26; 73030-26-RT; 73030-RT; 80053; 82962; 83735; 84484; 85025; 93005; 99284; 99285-25

== ENCOUNTER 2020-10-17 01:48 | Emergency (ER) | payer MEDICARE, OTHER, MEDICAID ==
[2020-10-17] MEDS ORDERED: Lidocaine 1% 50 ML MDV ONE (01:58)
--- NOTE | 2020-10-17 03:50 | EDM.PDOC ---
ED HPI GENERAL MEDICAL PROBLEM - General Chief Complaint: Laceration Stated Complaint: [facility] Time Seen by Provider: 10/17/20 01:54 Source of Information: Reports: Patient, EMS History Limitations: Reports: No Limitations - History of Present Illness INITIAL COMMENTS - FREE TEXT/NARRATIVE: Patient is a 75-year-old female who comes in by ambulance after falling at home while getting out of bed tingling up with her walker with an extremely large right leg laceration. Patient is on Eliquis and Plavix. She denies any head neck or torso trauma. She has no abdominal pain and her 3 other extremities are uninjured. Patient states there was extensive bleeding at home. Patient's daughter states her mother's home look like a murder scene since the door was broken down by paramedics and there was blood everywhere. Patient denies not being well prior to her fall. She has no other complaints currently. Onset: Today Duration: Constant Location: Reports: Lower Extremity, Right Quality: Reports: Ache Severity: Mild Improves with: Reports: None Worsens with: Reports: Movement Associated Symptoms: Reports: No Other Symptoms Treatments [employer]: Reports: Dressing(s) Right Lower Anterior Leg Pain Score (Numeric/FACES): 8 - Related Data Allergies Allergy/AdvReac Type Severity Reaction Status Date / Time NSAIDS (Non-Steroidal Allergy Other Verified 10/17/20 02:04 Anti-Inflamma Home Meds: Home Meds Docusate Sodium [Dulcolax Stool Softener] 100 mg PO BID PRN 04/04/17 [History] Gabapentin [Neurontin] 300 mg PO DAILY 04/04/17 [History] Sertraline [Zoloft] 100 mg PO DAILY 04/04/17 [History] atorvaSTATin [Lipitor] 40 mg PO DAILY 04/04/17 [History] diphenhydrAMINE [Benadryl] 50 mg PO BEDTIME PRN 04/04/17 [History] Acetaminophen [Tylenol] 650 mg PO Q6H PRN 09/16/18 [History] Albuterol [Ventolin HFA] 2 puff INH Q4H PRN 09/16/18 [History] Apixaban [Eliquis] 2.5 mg PO BID 09/16/18 [History] Benzonatate 100 mg PO QID PRN 09/16/18 [History] Cyclobenzaprine [Flexeril] 5 mg PO TID PRN 09/16/18 [History] Fluticasone Propionate [Flonase] 1 dose NASBOTH BID 09/16/18 [History] Ipratropium [Atrovent 0.06% Nasal [place]] 2 spray NASBOTH TID 09/16/18 [History] Latanoprost 1 drop EYEBOTH DAILY 09/16/18 [History] Levothyroxine Sodium 137 mcg PO DAILY 09/16/18 [History] Melatonin 10 mg PO DAILY 09/16/18 [History] Metoclopramide HCl 5 mg PO QID PRN 09/16/18 [History] Pantoprazole Sodium 40 mg PO DAILY 09/16/18 [History] Tacrolimus 1.5 mg PO BID 09/16/18 [History] Timolol Maleate 1 drop EYEBOTH BEDTIME 09/16/18 [History] azaTHIOprine [Imuran] 150 mg PO DAILY 09/16/18 [History] carvediloL [Carvedilol] 12.5 mg PO BID 09/16/18 [History] ondansetron HCL [Zofran] 4 mg PO Q4H PRN 09/16/18 [History] predniSONE [Prednisone] 5 mg PO DAILY 09/16/18 [History] traMADol HCl [Tramadol HCl] 50 mg PO Q6H PRN 09/16/18 [History] Clopidogrel Bisulfate [Plavix] 75 mg PO DAILY 09/14/19 [History] Insulin Glarg,Human.Rec.Analog [Lantus] 25 - 30 unit SQ BEDTIME 09/14/19 [History] Past Medical History HEENT History: Reports: Cataract, Other (See Below) Other HEENT History: retinal hemorrhage Cardiovascular History: Reports: Blood Clots/VTE/DVT, CAD, High Cholesterol, Hypertension Respiratory History: Reports: Intubation, Difficult, Other (See Below) Other Respiratory History: hypoxemia Gastrointestinal History: Reports: Cholelithiasis, Chronic Constipation, GERD Genitourinary History: Reports: Acute Renal Failure, Dialysis, Other (See Below) Other Genitourinary History: R kidney transplant, end stage renal disease, UTI, oxalate nephropathy, left kidney transplant [employer]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 Hematologic History: Reports: Anemia, Other (See Below) Other Hematologic History: elevated phosphate Immunologic History: Reports: None Oncologic (Cancer) History: Reports: None Dermatologic History: Reports: None - Infectious Disease History Infectious Disease History: Reports: Chicken Pox, Measles, Mumps - Past Surgical History Head Surgeries/Procedures: Reports: None HEENT Surgical History: Reports: Detached Retina, Eye Surgery, Tonsillectomy Cardiovascular Surgical History: Reports: Vascular Surgery Respiratory Surgical History: Reports: None GI Surgical History: Reports: Appendectomy, Bariatric Procedure, Colonoscopy, EGD, Other (See Below) Other GI Surgeries/Procedures: panniculectomy Female Surgical History: Reports: Hysterectomy Endocrine Surgical History: Reports: Thyroidectomy Neurological Surgical History: Reports: None Musculoskeletal Surgical History: Reports: Knee Replacement, ORIF Other Musculoskeletal Surgeries/Procedures:: DVT LLE Oncologic Surgical History: Reports: None Dermatological Surgical History: Reports: None Social & Family History - Family History Family Medical History: No Pertinent Family History - Tobacco Use Tobacco Use Status *Q: Never Tobacco User Second Hand Smoke Exposure: No - Caffeine Use Caffeine Use: Reports: Coffee - Recreational Drug Use Recreational Drug Use: No - Living Situation & Occupation Living situation: Reports: Occupation: Retired ED ROS GENERAL - Review of Systems Review Of Systems: Comprehensive ROS is negative, except as noted in HPI. ED EXAM, SKIN/RASH Exam: See Below Exam Limited By: No Limitations General Appearance: Alert, No Apparent Distress Head: Atraumatic Neck: Supple, Full Range of Motion Respiratory/Chest: No Respiratory Distress Cardiovascular: No JVD GI/Abdominal: Non-Tender, No Distention Back Exam: Normal Inspection, Full Range of Motion Extremities: Leg Pain, Other (Large L-shaped laceration to right anterior leg approximately 14 inches in size. This is gaping wide open. There is no bony involvement. There is slow oozing of blood from the wound. Patient's extremity remains neurovascularly intact.) Neurological: Alert, CN II-XII Intact, Normal Cognition Psychiatric: Normal Affect, Normal Mood Skin: Warm, Dry, Wound/Incision Location, Skin: Lower Extremity, Right Lymphatic: No Adenopathy ED SKIN PROCEDURES - Laceration/Wound Repair Right Lower Anterior Leg Appearance: Subcutaneous, Clean Distal NVT: Neuro & Vascular Intact, No Tendon Injury Anesthetic Type: Local Local Anesthesia - Lidocaine (Xylocaine): 1% Plain Local Anesthetic Volume: Other (20 cc) Skin Prep: Providone-Iodine (Betadine) Exploration/Debridement/Repair: Wound Explored Closed with: Sutures Lac/Wound length In cm: 24 Suture Size: 3-0 Suture Type: Nylon, Interrupted, Mattress Course - Vital Signs Text/Narrative:: Patient tolerated procedure well. Patient's skin was very thin and was hard to approximate wound edges. I was not able to place any subcutaneous stitches due to how thin her skin was. Laceration repair was completed with 6 packages of 3- 0 nylon suture being used. Patient is having some oozing of blood after laceration closure for which we are putting on Surgicel type dressing. Patient will need to have this changed in 2 days. She may return sooner if bleeding is not controlled. I am recommending that she hold her Plavix for 2 days. Last Recorded V/S: Last Vital Signs Temp 98.2 F 10/17/20 01:54 Pulse 90 10/17/20 01:54 Resp 16 10/17/20 01:54 BP 125/78 10/17/20 01:54 Pulse Ox 92 L 10/17/20 01:54 - Orders/Labs/Meds Meds: Medications Discontinued Medications Generic Name Dose Route Start Last Admin Trade Name Winston PRN Reason Stop Dose Admin Lidocaine HCl Confirm 10/17/20 01:58 Lidocaine 1% 50 Ml Mdv Administered 10/17/20 01:59 Dose 100 ml .ROUTE .STK-MED ONE Departure - Departure Time of Disposition: 03:54 Disposition: Home, Self-Care 01 Condition: Good Clinical Impression: Laceration of lower extremity Fall Qualifiers: Encounter type: initial encounter Qualified Code(s): W19.XXXA - Unspecified fall, initial encounter - Discharge Information Instructions: Laceration Care, Adult Referrals: Valdez Mendoza MD [Primary Care Provider] - Additional Instructions: Recheck wound in 2 days return sooner if bleeding not controlled or any sign of infection. Hold Eliquis for the next 2 days. Decrease activity if possible. Sepsis Event Note (ED) - Evaluation Sepsis Screening Result: No Definite Risk - Focused Exam Vital Signs: Vital Signs Temp Pulse Resp BP Pulse Ox 10/17/20 01:54 98.2 F 90 16 125/78 92 L
== END 2020-10-17 04:39 | disposition home or self-care (01) ==
LOC: JD.ED 01:48
DX: S81.811A Laceration without foreign body, right lower leg, initial encounter (principal); E78.00 Pure hypercholesterolemia, unspecified; I25.10 Atherosclerotic heart disease of native coronary artery without angina pectoris; I12.0 Hypertensive chronic kidney disease with stage 5 chronic kidney disease or end stage renal disease; E11.22 Type 2 diabetes mellitus with diabetic chronic kidney disease; N18.6 End stage renal disease; N17.9 Acute kidney failure, unspecified; D63.1 Anemia in chronic kidney disease; K21.9 Gastro-esophageal reflux disease without esophagitis; M19.90 Unspecified osteoarthritis, unspecified site; E03.9 Hypothyroidism, unspecified; E66.9 Obesity, unspecified; Z68.35 Body mass index [BMI] 35.0-35.9, adult; Z99.2 Dependence on renal dialysis; Z88.6 Allergy status to analgesic agent; Z79.02 Long term (current) use of antithrombotics/antiplatelets; Z79.01 Long term (current) use of anticoagulants; Z79.4 Long term (current) use of insulin; Z79.899 Other long term (current) drug therapy; W06.XXXA Fall from bed, initial encounter; Y92.009 Unspecified place in unspecified non-institutional (private) residence as the place of occurrence of the external cause
CPT/HCPCS: 12006; 99283; J2001

== ENCOUNTER 2020-10-18 21:00 | Emergency (ER) | payer MEDICARE, OTHER ==
--- NOTE | 2020-10-19 01:12 | EDM.PDOC ---
ED HPI GENERAL MEDICAL PROBLEM - General Chief Complaint: Lower Extremity Injury/Pain Stated Complaint: LT LEG LAC Time Seen by Provider: 10/18/20 21:19 Source of Information: Reports: Patient, Family History Limitations: Reports: No Limitations - History of Present Illness INITIAL COMMENTS - FREE TEXT/NARRATIVE: Patient is a 75-year-old female who is on both Plavix and Eliquis who had a extremely large laceration to her right leg which closed with suturing last night. When changing the dressing tonight daughter noted there was some active bleeding. I had instructed them to hold her Eliquis for 2 days. Patient denies increased pain or any fever or chills. She denies any recent injury. Daughter states she had to scrub vigorously to get the clotting powder we had put on after suturing. This is most likely the reason why she was having bleeding earlier since there is no active bleeding currently. Onset: Today Duration: Waxing/Waning Location: Reports: Lower Extremity, Right Right Lower Leg Pain Score (Numeric/FACES): 3 - Related Data Allergies Allergy/AdvReac Type Severity Reaction Status Date / Time NSAIDS (Non-Steroidal Allergy Other Verified 10/17/20 02:04 Anti-Inflamma Home Meds: Home Meds Docusate Sodium [Dulcolax Stool Softener] 100 mg PO BID PRN 04/04/17 [History] Gabapentin [Neurontin] 300 mg PO DAILY 04/04/17 [History] Sertraline [Zoloft] 100 mg PO DAILY 04/04/17 [History] atorvaSTATin [Lipitor] 40 mg PO DAILY 04/04/17 [History] diphenhydrAMINE [Benadryl] 50 mg PO BEDTIME PRN 04/04/17 [History] Acetaminophen [Tylenol] 650 mg PO Q6H PRN 09/16/18 [History] Albuterol [Ventolin HFA] 2 puff INH Q4H PRN 09/16/18 [History] Apixaban [Eliquis] 2.5 mg PO BID 09/16/18 [History] Benzonatate 100 mg PO QID PRN 09/16/18 [History] Cyclobenzaprine [Flexeril] 5 mg PO TID PRN 09/16/18 [History] Fluticasone Propionate [Flonase] 1 dose NASBOTH BID 09/16/18 [History] Ipratropium [Atrovent 0.06% Nasal [place]] 2 spray NASBOTH TID 09/16/18 [History] Latanoprost 1 drop EYEBOTH DAILY 09/16/18 [History] Levothyroxine Sodium 137 mcg PO DAILY 09/16/18 [History] Melatonin 10 mg PO DAILY 09/16/18 [History] Metoclopramide HCl 5 mg PO QID PRN 09/16/18 [History] Pantoprazole Sodium 40 mg PO DAILY 09/16/18 [History] Tacrolimus 1.5 mg PO BID 09/16/18 [History] Timolol Maleate 1 drop EYEBOTH BEDTIME 09/16/18 [History] azaTHIOprine [Imuran] 150 mg PO DAILY 09/16/18 [History] carvediloL [Carvedilol] 12.5 mg PO BID 09/16/18 [History] ondansetron HCL [Zofran] 4 mg PO Q4H PRN 09/16/18 [History] predniSONE [Prednisone] 5 mg PO DAILY 09/16/18 [History] traMADol HCl [Tramadol HCl] 50 mg PO Q6H PRN 09/16/18 [History] Clopidogrel Bisulfate [Plavix] 75 mg PO DAILY 09/14/19 [History] Insulin Glarg,Human.Rec.Analog [Lantus] 25 - 30 unit SQ BEDTIME 09/14/19 [History] Past Medical History HEENT History: Reports: Cataract, Other (See Below) Other HEENT History: retinal hemorrhage Cardiovascular History: Reports: Blood Clots/VTE/DVT, CAD, High Cholesterol, Hypertension Respiratory History: Reports: Intubation, Difficult, Other (See Below) Other Respiratory History: hypoxemia Gastrointestinal History: Reports: Cholelithiasis, Chronic Constipation, GERD Genitourinary History: Reports: Acute Renal Failure, Dialysis, Other (See Below) Other Genitourinary History: R kidney transplant, end stage renal disease, UTI, oxalate nephropathy, left kidney transplant 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 Hematologic History: Reports: Anemia, Other (See Below) Other Hematologic History: elevated phosphate Immunologic History: Reports: None Oncologic (Cancer) History: Reports: None Dermatologic History: Reports: None - Infectious Disease History Infectious Disease History: Reports: Chicken Pox, Measles, Mumps - Past Surgical History Head Surgeries/Procedures: Reports: None HEENT Surgical History: Reports: Detached Retina, Eye Surgery, Tonsillectomy Cardiovascular Surgical History: Reports: Vascular Surgery Respiratory Surgical History: Reports: None GI Surgical History: Reports: Appendectomy, Bariatric Procedure, Colonoscopy, EGD, Other (See Below) Other GI Surgeries/Procedures: panniculectomy Female Surgical History: Reports: Hysterectomy Endocrine Surgical History: Reports: Thyroidectomy Neurological Surgical History: Reports: None Musculoskeletal Surgical History: Reports: Knee Replacement, ORIF Other Musculoskeletal Surgeries/Procedures:: DVT LLE Oncologic Surgical History: Reports: None Dermatological Surgical History: Reports: None Social & Family History - Family History Family Medical History: No Pertinent Family History - Caffeine Use Caffeine Use: Reports: Coffee - Living Situation & Occupation Living situation: Reports: Occupation: Retired Review of Systems - Review of Systems Review Of Systems: Comprehensive ROS is negative, except as noted in HPI. ED EXAM, GENERAL - Physical Exam Exam: See Below Exam Limited By: No Limitations General Appearance: Alert, No Apparent Distress Head: Atraumatic, Normocephalic Neck: Supple, Full Range of Motion Respiratory/Chest: No Respiratory Distress Extremities: Redness, Other (Laceration showing no sign of infection. There is no active bleeding. There is a few areas where the skin has been retorn but overall the wound looks like it is healing well. Again no active bleeding.). No: Increased Warmth Neurological: Alert, Oriented, Normal Cognition Psychiatric: Normal Affect Skin Exam: Warm, Dry Lymphatic: No Adenopathy Course - Vital Signs Text/Narrative:: New dressing was applied. Patient and daughter given wound care instructions. Suture removal will be in 9 days. Return sooner if bleeding continues or in any way worse. Last Recorded V/S: Last Vital Signs Temp 97.5 F 10/18/20 21:44 Pulse 87 10/18/20 21:44 Resp 20 10/18/20 21:44 BP 137/69 10/18/20 21:44 Pulse Ox 93 L 10/18/20 21:44 Departure - Departure Time of Disposition: 01:11 Disposition: Home, Self-Care 01 Condition: Good Clinical Impression: Encounter for re-check of laceration wound, Leg laceration - Discharge Information Instructions: Laceration Care, Adult, [id number] Referrals: Valdez Mendoza MD [Primary Care Provider] - Forms: ED Department Discharge Additional Instructions: Return to ER if worse. Hold Eliquis for at least 1 more day. Follow-up with PCP for recheck this week. Suture removal 10 days after initial injury. Keep clean and dry. Antibiotic ointment twice a day. Sepsis Event Note (ED) - Evaluation Sepsis Screening Result: No Definite Risk - Focused Exam Vital Signs: Vital Signs Temp Pulse Resp BP Pulse Ox 10/18/20 21:44 97.5 F 87 20 137/69 93 L
== END 2020-10-18 22:00 | disposition home or self-care (01) ==
LOC: JD.ED 21:00
DX: S81.811A Laceration without foreign body, right lower leg, initial encounter (principal); I25.10 Atherosclerotic heart disease of native coronary artery without angina pectoris; E78.00 Pure hypercholesterolemia, unspecified; K21.9 Gastro-esophageal reflux disease without esophagitis; I12.0 Hypertensive chronic kidney disease with stage 5 chronic kidney disease or end stage renal disease; E11.22 Type 2 diabetes mellitus with diabetic chronic kidney disease; N18.6 End stage renal disease; N17.9 Acute kidney failure, unspecified; D63.1 Anemia in chronic kidney disease; M19.90 Unspecified osteoarthritis, unspecified site; E03.9 Hypothyroidism, unspecified; E66.9 Obesity, unspecified; Z68.30 Body mass index [BMI] 30.0-30.9, adult; Z99.2 Dependence on renal dialysis; Z88.6 Allergy status to analgesic agent; Z79.01 Long term (current) use of anticoagulants; Z79.4 Long term (current) use of insulin; Z79.899 Other long term (current) drug therapy; W06.XXXA Fall from bed, initial encounter; Y92.009 Unspecified place in unspecified non-institutional (private) residence as the place of occurrence of the external cause
CPT/HCPCS: 99282

== ENCOUNTER 2020-11-13 16:01 | Emergency (ER) | payer MEDICARE, OTHER, MEDICAID ==
[2020-11-13] MEDS ORDERED: Sodium Chloride 0.9% 10 ML Syringe FLUSH PRN (16:14)
[2020-11-13] MEDS ORDERED: Sodium Chloride 0.9% 1,000 ML IV SCH (16:15)
[2020-11-13] MEDS ORDERED: cefTRIAXone 2 GM in Sodium Chloride 0.9% 100 ML IV ONE (16:17)
--- NOTE | 2020-11-13 16:56 | EDM.PDOC ---
ED HPI GENERAL MEDICAL PROBLEM - General Chief Complaint: General Stated Complaint: [facility] Time Seen by Provider: 11/13/20 16:14 Source of Information: Reports: Patient, EMS, Family History Limitations: Reports: Altered Mental Status - History of Present Illness INITIAL COMMENTS - FREE TEXT/NARRATIVE: The patient presents by [facility] for a fall. The patient fell on 10/18/2020 and was seen here. She had a large laceration to her right lower leg. The laceration was sutured. The next day she returned because it was bleeding again. The bleeding was stopped. The sutures remained in for about 2 weeks because it was not healing right. The sutures were then removed and it pulled apart. She followed up with Dr Bundy one of our general surgeons and he was taking care of it. She lives alone but her family checks on her. Her grandson helped her around yesterday and took her to the bathroom. Today she went and she was too weak to get up. Her grandson came about 4pm to check on her and found her on the stool. She may have been there since midnight. He had some help come over and they tried to get her up but she was to weak and she went to the floor. It was slow and she was not injured. 911 was called and they came got her up and brought her in. She was confused. Her blood sugar was 264. She had no fever, chills, cough, headache, chest pain, or shortness of breath. She has no abdominal pain, nausea or vomiting. Her mucus membranes are very dry. 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 She is on some rejection drugs. She is on tacrolimus, imuran, and prednisone. Onset: Gradual Duration: Day(s): Severity: Moderate Improves with: Reports: None Worsens with: Reports: None Associated Symptoms: Denies: Chest Pain, Cough, Fever/Chills, Headaches, Nausea/Vomiting, Shortness of Breath - Related Data Allergies Allergy/AdvReac Type Severity Reaction Status Date / Time NSAIDS (Non-Steroidal Allergy Severe Other Verified 11/13/20 16:06 Anti-Inflamma Home Meds: Home Meds Docusate Sodium [Dulcolax Stool Softener] 100 mg PO BID PRN 04/04/17 [History] Gabapentin [Neurontin] 300 mg PO DAILY 04/04/17 [History] Sertraline [Zoloft] 100 mg PO DAILY 04/04/17 [History] atorvaSTATin [Lipitor] 40 mg PO DAILY 04/04/17 [History] diphenhydrAMINE [Benadryl] 50 mg PO BEDTIME PRN 04/04/17 [History] Acetaminophen [Tylenol] 650 mg PO Q6H PRN 09/16/18 [History] Albuterol [Ventolin HFA] 2 puff INH Q4H PRN 09/16/18 [History] Apixaban [Eliquis] 2.5 mg PO BID 09/16/18 [History] Benzonatate 100 mg PO QID PRN 09/16/18 [History] Cyclobenzaprine [Flexeril] 5 mg PO TID PRN 09/16/18 [History] Fluticasone Propionate [Flonase] 1 dose NASBOTH BID 09/16/18 [History] Ipratropium [Atrovent 0.06% Nasal [place]] 2 spray NASBOTH TID 09/16/18 [History] Latanoprost 1 drop EYEBOTH DAILY 09/16/18 [History] Levothyroxine Sodium 137 mcg PO DAILY 09/16/18 [History] Melatonin 10 mg PO DAILY 09/16/18 [History] Metoclopramide HCl 5 mg PO QID PRN 09/16/18 [History] Pantoprazole Sodium 40 mg PO DAILY 09/16/18 [History] Tacrolimus 1.5 mg PO BID 09/16/18 [History] Timolol Maleate 1 drop EYEBOTH BEDTIME 09/16/18 [History] azaTHIOprine [Imuran] 150 mg PO DAILY 09/16/18 [History] carvediloL [Carvedilol] 12.5 mg PO BID 09/16/18 [History] ondansetron HCL [Zofran] 4 mg PO Q4H PRN 09/16/18 [History] predniSONE [Prednisone] 5 mg PO DAILY 09/16/18 [History] traMADol HCl [Tramadol HCl] 50 mg PO Q6H PRN 09/16/18 [History] Clopidogrel Bisulfate [Plavix] 75 mg PO DAILY 09/14/19 [History] Insulin Glarg,Human.Rec.Analog [Lantus] 25 - 30 unit SQ BEDTIME 09/14/19 [History] Past Medical History HEENT History: Reports: Cataract, Other (See Below) Other HEENT History: retinal hemorrhage Cardiovascular History: Reports: Blood Clots/VTE/DVT, CAD, High Cholesterol, Hypertension Respiratory History: Reports: Intubation, Difficult, Other (See Below) Other Respiratory History: hypoxemia Gastrointestinal History: Reports: Cholelithiasis, Chronic Constipation, GERD Genitourinary History: Reports: Acute Renal Failure, Dialysis, Other (See Below) Other Genitourinary History: R kidney transplant, end stage renal disease, UTI, oxalate nephropathy, left kidney transplant [employer]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 Hematologic History: Reports: Anemia, Other (See Below) Other Hematologic History: elevated phosphate Immunologic History: Reports: None Oncologic (Cancer) History: Reports: None Dermatologic History: Reports: None - Infectious Disease History Infectious Disease History: Reports: Chicken Pox, Measles, Mumps - Past Surgical History HEENT Surgical History: Reports: Detached Retina, Eye Surgery, Tonsillectomy Cardiovascular Surgical History: Reports: Vascular Surgery GI Surgical History: Reports: Appendectomy, Bariatric Procedure, Colonoscopy, EGD, Other (See Below) Other GI Surgeries/Procedures: panniculectomy Female Surgical History: Reports: Hysterectomy Endocrine Surgical History: Reports: Thyroidectomy Neurological Surgical History: Reports: None Musculoskeletal Surgical History: Reports: Knee Replacement, ORIF Other Musculoskeletal Surgeries/Procedures:: DVT LLE Social & Family History - Family History Family Medical History: No Pertinent Family History - Tobacco Use Tobacco Use Status *Q: Unknown Ever Used Tobacco - Caffeine Use Caffeine Use: Reports: Coffee Caffeine Use Comment: Unknown. - Living Situation & Occupation Living situation: Reports: Occupation: Retired ED ROS GENERAL - Review of Systems Review Of Systems: See Below Constitutional: Reports: Malaise, Weakness, Fatigue. Denies: Fever, Chills HEENT: Reports: No Symptoms Respiratory: Reports: No Symptoms Cardiovascular: Reports: No Symptoms Endocrine: Reports: No Symptoms GI/Abdominal: Reports: No Symptoms : Reports: No Symptoms Musculoskeletal: Reports: No Symptoms ED EXAM, GENERAL - Physical Exam Exam: See Below Exam Limited By: Altered Mental Status General Appearance: Alert, Other (she is a little confused) Ears: Normal External Exam Throat/Mouth: Other (dry mucus membranes) Head: Atraumatic, Normocephalic Neck: Normal Inspection Respiratory/Chest: No Respiratory Distress, Lungs Clear, Normal Breath Sounds Cardiovascular: Regular Rate, Rhythm, No Edema, No Murmur GI/Abdominal: Soft, Non-Tender, No Organomegaly, No Mass Extremities: Other (large older appearing laceration to the right lower anterior leg. The lower part of the laceration has torn open. There is erythema and swelling.) #1 Interpretation EKG Date: 11/13/20 Time: 17:14 Rhythm: Other (sinus tachycaradia) Rate (Beats/Min): 103 [place]: Normal P-Wave: Present QRS: Normal ST-T: Normal QT: Normal Course - Vital Signs Last Recorded V/S: Last Vital Signs Temp 98.2 F 11/13/20 16:02 Pulse 110 H 11/13/20 16:02 Resp 18 11/13/20 16:02 BP 153/87 H 11/13/20 16:02 Pulse Ox 100 11/13/20 16:02 - Orders/Labs/Meds Orders: Active Orders 24 hr Category Date Time Status Cardiac Monitoring [RC] . DIRECTED Care 11/13/20 16:14 Active Peripheral IV Care [RC] . DIRECTED Care 11/13/20 16:14 Active Chest 1V Frontal [CR] Stat Exams 11/13/20 18:18 Taken Head wo Cont [CT] Stat Exams 11/13/20 16:20 Taken Tibia Fibula Rt [CR] Stat Exams 11/13/20 16:53 Taken BLOOD CULTURE [MREF] Stat Lab 11/13/20 16:25 Received BLOOD CULTURE [MREF] Stat Lab 11/13/20 16:35 Received UA RFX ANGEL AND CULT IF INDIC [URIN] Stat Lab 11/13/20 16:54 Ordered Sodium Chloride 0.9% [Normal Saline] 1,000 ml Med 11/13/20 16:15 Active IV .BOLUS Sodium Chloride 0.9% [Saline Flush] Med 11/13/20 16:14 Active 10 ml FLUSH ASDIRECTED PRN Blood Culture x2 Reflex Set [OM.PC] Stat Oth 11/13/20 16:17 Ordered Peripheral IV Insertion Adult [OM.PC] Stat Oth 11/13/20 16:14 Ordered Medication Orders Sodium Chloride (Normal Saline) 1,000 mls @ 1,000 mls/hr IV .BOLUS JANI Last Admin: 11/13/20 16:51 Dose: 1,000 mls/hr Documented by: ESME Sodium Chloride (Sodium Chloride 0.9% 10 Ml Syringe) 10 ml FLUSH ASDIRECTED PRN PRN Reason: Keep Vein Open Last Admin: 11/13/20 16:52 Dose: 10 ml Documented by: ESME Labs: Laboratory Tests 11/13/20 11/13/20 11/13/20 Range/Units 16:25 16:25 16:25 WBC 7.27 (3.98-10.04) K/mm3 RBC 3.35 L (3.98-5.22) M/mm3 Hgb 11.6 (11.2-15.7) gm/dl Hct 35.9 (34.1-44.9) % MCV 107.2 H (79.4-94.8) fl MCH 34.6 H (25.6-32.2) pg MCHC 32.3 (32.2-35.5) g/dl RDW Std Deviation 56.7 H (36.4-46.3) fL Plt Count 266 (182-369) K/mm3 MPV 9.2 L (9.4-12.3) fl Neut % (Auto) 74.4 H (34.0-71.1) % Lymph % (Auto) 15.3 L (19.3-51.7) % [place] % (Auto) 8.9 (4.7-12.5) % Eos % (Auto) 0.6 L (0.7-5.8) Baso % (Auto) 0.1 (0.1-1.2) % Neut # (Auto) 5.41 (1.56-6.13) K/mm3 Lymph # (Auto) 1.11 L (1.18-3.74) K/mm3 [place] # (Auto) 0.65 H (0.24-0.36) K/mm3 Eos # (Auto) 0.04 (0.04-0.36) K/mm3 Baso # (Auto) 0.01 (0.01-0.08) K/mm3 Sodium 141 (136-145) mEq/L Potassium 5.0 (3.5-5.1) mEq/L Chloride 104 (98-107) mEq/L Carbon Dioxide 18 L D (21-32) mEq/L Anion Gap 24.0 H (5-15) BUN 30 H (7-18) mg/dL Creatinine 1.2 H (0.55-1.02) mg/dL Est Cr Clr Drug Dosing TNP Estimated GFR (MDRD) 44 (>60) mL/min BUN/Creatinine Ratio 25.0 H (14-18) Glucose 296 H (70-99) mg/dL Lactic Acid 2.0 (0.4-2.0) mmol/L Calcium 8.2 L (8.5-10.1) mg/dL Magnesium 1.9 (1.8-2.4) mg/dL Total Bilirubin 1.1 H (0.2-1.0) mg/dL AST 30 (15-37) U/L ALT 21 (14-59) U/L Alkaline Phosphatase 79 (46-116) U/L Troponin I < 0.017 (0.00-0.056) ng/mL C-Reactive Protein 12.4 H* (<1.0) mg/dL Total Protein 6.4 (6.4-8.2) g/dl Albumin 2.7 L (3.4-5.0) g/dl Globulin 3.7 gm/dL Albumin/Globulin Ratio 0.7 L (1-2) SARS-CoV-2 RNA (NEMO) (NEGATIVE) 11/13/20 Range/Units 16:30 WBC (3.98-10.04) K/mm3 RBC (3.98-5.22) M/mm3 Hgb (11.2-15.7) gm/dl Hct (34.1-44.9) % MCV (79.4-94.8) fl MCH (25.6-32.2) pg MCHC (32.2-35.5) g/dl RDW Std Deviation (36.4-46.3) fL Plt Count (182-369) K/mm3 MPV (9.4-12.3) fl Neut % (Auto) (34.0-71.1) % Lymph % (Auto) (19.3-51.7) % [place] % (Auto) (4.7-12.5) % Eos % (Auto) (0.7-5.8) Baso % (Auto) (0.1-1.2) % Neut # (Auto) (1.56-6.13) K/mm3 Lymph # (Auto) (1.18-3.74) K/mm3 [place] # (Auto) (0.24-0.36) K/mm3 Eos # (Auto) (0.04-0.36) K/mm3 Baso # (Auto) (0.01-0.08) K/mm3 Sodium (136-145) mEq/L Potassium (3.5-5.1) mEq/L Chloride (98-107) mEq/L Carbon Dioxide (21-32) mEq/L Anion Gap (5-15) BUN (7-18) mg/dL Creatinine (0.55-1.02) mg/dL Est Cr Clr Drug Dosing Estimated GFR (MDRD) (>60) mL/min BUN/Creatinine Ratio (14-18) Glucose (70-99) mg/dL Lactic Acid (0.4-2.0) mmol/L Calcium (8.5-10.1) mg/dL Magnesium (1.8-2.4) mg/dL Total Bilirubin (0.2-1.0) mg/dL AST (15-37) U/L ALT (14-59) U/L Alkaline Phosphatase (46-116) U/L Troponin I (0.00-0.056) ng/mL C-Reactive Protein (<1.0) mg/dL Total Protein (6.4-8.2) g/dl Albumin (3.4-5.0) g/dl Globulin gm/dL Albumin/Globulin Ratio (1-2) SARS-CoV-2 RNA (NEMO) Positive H (NEGATIVE) Meds: Medications Generic Name Dose Route Start Last Admin Trade Name Freq PRN Reason Stop Dose Admin Sodium Chloride 1,000 mls @ 1,000 mls/hr 11/13/20 16:15 11/13/20 16:51 Normal Saline IV 1,000 mls/hr .BOLUS JANI Administration Sodium Chloride 10 ml 11/13/20 16:14 11/13/20 16:52 Sodium Chloride 0.9% 10 Ml Syringe FLUSH 10 ml ASDIRECTED PRN Administration Keep Vein Open Discontinued Medications Generic Name Dose Route Start Last Admin Trade Name Winston PRN Reason Stop Dose Admin Ceftriaxone Sodium 2 gm/ 100 mls @ 200 mls/hr 11/13/20 16:17 11/13/20 16:51 Sodium Chloride IV 11/13/20 16:46 200 mls/hr ONETIME ONE Administration - Re-Assessments/Exams Free Text/Narrative Re-Assessment/Exam: 11/13/20 19:23 I ordered an IV NS 1L bolus, CT of her head, x-ray of her right tib/fib, labs, blood cultures and lactic acid. I also did a COVID 19 swab for possible admission. I did ordered her some rocephin 2 grams IV. Her CBC looks good. Her anion gap is 24. Her creatinine is 1.2. Her glucose is 296. Her lactic acid is normal at 2. Her troponin is negative. Her CRP is elevated at 12.4. Her COVID [address] of her head looks good. I was surprised to see her COVID 19 came back positive. Her oxygen saturations did go down the upper 80s. I ordered a CXR and that looks good. 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 I feel she has a wound infection with cellulitis. She also has COVID 19 with hypoxia. She is very complicated with the renal transplant and both infections. She will have to go to [place]. I have called [facility] in [place]. 11/13/20 20:10 I talked to the hospitalist. Dr Murillo and she agreed to the admission. Departure - Departure Time of Disposition: 20:15 Disposition: DC/Tfer to Acute Hospital 02 Condition: Poor Clinical Impression: Cellulitis of right leg, COVID-19, Hypoxia - Discharge Information Referrals: Valdez Mendoza MD [Primary Care Provider] - Forms: ED Department Discharge Sepsis Event Note (ED) - Evaluation Sepsis Screening Result: No Definite Risk - Focused Exam Vital Signs: Vital Signs Temp Pulse Resp BP Pulse Ox 11/13/20 16:02 98.2 F 110 H 18 153/87 H 100 - My Orders Last 24 Hours: My Active Orders 11/13/20 16:14 Cardiac Monitoring [RC] . DIRECTED Peripheral IV Care [RC] . DIRECTED Sodium Chloride 0.9% [Saline Flush] 10 ml FLUSH ASDIRECTED PRN Peripheral IV Insertion Adult [OM.PC] Stat 11/13/20 16:15 Sodium Chloride 0.9% [Normal Saline] 1,000 ml IV .BOLUS 11/13/20 16:17 Blood Culture x2 Reflex Set [OM.PC] Stat 11/13/20 16:20 Head wo Cont [CT] Stat 11/13/20 16:25 BLOOD CULTURE [MREF] Stat 11/13/20 16:35 BLOOD CULTURE [MREF] Stat 11/13/20 16:53 Tibia Fibula Rt [CR] Stat 11/13/20 16:54 UA RFX ANGEL AND CULT IF INDIC [URIN] Stat 11/13/20 18:18 Chest 1V Frontal [CR] Stat - Assessment/Plan Last 24 Hours: My Active Orders 11/13/20 16:14 Cardiac Monitoring [RC] . DIRECTED Peripheral IV Care [RC] . DIRECTED Sodium Chloride 0.9% [Saline Flush] 10 ml FLUSH ASDIRECTED PRN Peripheral IV Insertion Adult [OM.PC] Stat 11/13/20 16:15 Sodium Chloride 0.9% [Normal Saline] 1,000 ml IV .BOLUS 11/13/20 16:17 Blood Culture x2 Reflex Set [OM.PC] Stat 11/13/20 16:20 Head wo Cont [CT] Stat 11/13/20 16:25 BLOOD CULTURE [MREF] Stat 11/13/20 16:35 BLOOD CULTURE [MREF] Stat 11/13/20 16:53 Tibia Fibula Rt [CR] Stat 11/13/20 16:54 UA RFX ANGEL AND CULT IF INDIC [URIN] Stat 11/13/20 18:18 Chest 1V Frontal [CR] Stat
--- NOTE | 2020-11-14 10:07 | CR ---
Chest: Frontal view of the chest was obtained. Comparison: Prior chest x-ray of 04/30/20. Heart size and mediastinum are within normal limits. Lungs show no acute parenchymal change. Bony structures shows nothing acute. Impression: 1. Nothing acute is seen on frontal chest x-ray. Diagnostic code #1
--- NOTE | 2020-11-15 06:36 | CT ---
Head CT Technique: Multiple axial sections through the brain were obtained. Intravenous contrast was not utilized. Reconstructed coronal and sagittal images were obtained. Comparison: Prior head CT study of 09/14/19. Findings: Ventricles along with basal cisterns and sulci over the convexities are mildly prominent. Diminished density is noted within the periventricular and subcortical white matter which is stable and compatible with small vessel ischemic demyelination change. Minimal calcifications are seen within the basal ganglia. No other abnormal parenchymal densities are seen. No evidence of intracranial hemorrhage is seen. No midline shift or mass-effect is seen. Bone window settings were reviewed. Visualized mastoid sinuses and paranasal sinuses show nothing acute. Vascular calcification is noted within the carotid siphon and within the vertebral vessels. No acute calvarial abnormality is appreciated. Impression: 1. Senescent change as described above. 2. No acute intracranial abnormality is appreciated. 3. No change is appreciated from prior head CT study. Diagnostic code #2 I agree with preliminary report from [facility], finalized on 11/13/20, 6:04 PM CDT, code 1
--- NOTE | 2020-11-15 06:37 | CR ---
Right tibia and fibula: AP and lateral views of the right tibia and fibula were obtained. Comparison: No prior tibia or fibula study is available. Old healed fractures are seen within the tibial diaphysis and fibular diaphysis. Fairly significant joint space narrowing is noted within the medial joint. Slight deformity of the medial and lateral malleolus is seen which is compatible with old fractures. Spurring is noted off the plantar margin of the calcaneus and within the posterior calcaneus at the insertion of the Achilles tendon. Vascular calcification is noted. Partially visualized intramedullary faheem is seen within the femur. Soft tissue injury is noted anteriorly. Impression: 1. Multiple findings as noted above. 2. Soft tissue injury noted anteriorly. 3. No acute osseous abnormality is seen. Diagnostic code #3
== END 2020-11-13 22:15 ==
LOC: JD.ED 16:01
DX: U07.1 COVID-19 (principal); L03.115 Cellulitis of right lower limb; I25.10 Atherosclerotic heart disease of native coronary artery without angina pectoris; E78.00 Pure hypercholesterolemia, unspecified; I10 Essential (primary) hypertension; E11.9 Type 2 diabetes mellitus without complications; E03.9 Hypothyroidism, unspecified; E66.9 Obesity, unspecified; Z68.41 Body mass index [BMI] 40.0-44.9, adult; Z86.73 Personal history of transient ischemic attack (TIA), and cerebral infarction without residual deficits; Z86.718 Personal history of other venous thrombosis and embolism; Z79.01 Long term (current) use of anticoagulants; Z79.02 Long term (current) use of antithrombotics/antiplatelets; Z88.8 Allergy status to other drugs, medicaments and biological substances; Z79.899 Other long term (current) drug therapy
CPT/HCPCS: 36415; 70450; 71045; 73590; 80053; 83605; 83735; 84484; 85025; 86140; 87040; 93005; 96365; 99285; J0696; J7030; U0002; 93010; 99284

== ENCOUNTER 2021-04-09 09:31 | Inpatient (IN) | payer MEDICARE, MEDICAID ==
[2021-04-09] MEDS ORDERED: Furosemide 40 MG/4 ML VIAL IVPUSH ONE ×2 (10:57→14:00)
[2021-04-09 12:46] LABS: CORONAVIRUS COVID-19 NAA NEGATIVE (NEGATIVE)
[2021-04-09] MEDS ORDERED: 50% Dextrose in Water 50 ML Syringe IVPUSH STA (13:12)
[2021-04-09] MEDS ORDERED: Piperacillin/Tazobactam 4.5 GM in Sodium Chloride 0.9% 100 ML IV ONE (13:56)
[2021-04-09] MEDS ORDERED: Albuterol/Ipratropium 3.0-0.5 MG/3 ML Neb Soln NEB PRN (15:04)
[2021-04-09] MEDS ORDERED: Acetaminophen 325 MG Tab PO PRN (15:04)
[2021-04-09] MEDS ORDERED: Ondansetron 4 MG/2 ML SDV IV PRN (15:04)
[2021-04-09] MEDS ORDERED: Albuterol 0.083% 2.5 MG/3 ML Neb Soln NEB PRN (15:04)
[2021-04-09] MEDS ORDERED: Bisacodyl 10 MG Supp RECTAL PRN (15:12)
[2021-04-09] MEDS ORDERED: Acetaminophen/HYDROcodone 325-5 MG Tab PO PRN (15:12)
[2021-04-09 15:53] LABS: HEMOGLOBIN A1C 5.4 %
[2021-04-09] MEDS ORDERED: 50% Dextrose in Water 50 ML Syringe IVPUSH PRN (16:23)
[2021-04-09] MEDS: Albumin 25% 12.5 GM in Premix Bag 1 BAG IV SCH ×2 (17:30→18:19)
[2021-04-09] MEDS: Tacrolimus 1 MG Cap PO SCH (17:40)
[2021-04-09] MEDS: Insulin Lispro 100 Unit/ML 3 ML KwikPen SUBCUT SCH ×2 (17:45→22:07)
[2021-04-09] MEDS ORDERED: Carbamide Peroxide 6.5% Otic Soln 15 ML Bottle SCH (21:00)
[2021-04-09] MEDS: Acetaminophen/HYDROcodone 325-5 MG Tab PO SCH (22:03)
[2021-04-09] MEDS: Apixaban 2.5 MG Tab PO SCH (22:04)
[2021-04-09] MEDS: atorvaSTATin 40 MG Tab PO SCH (22:05)
[2021-04-09] MEDS: Sertraline 50 MG Tab PO SCH (22:05)
[2021-04-09] MEDS: Carvedilol 12.5 MG Tab PO SCH (22:06)
[2021-04-09] MEDS: Melatonin 3 MG Tab PO SCH (22:07)
[2021-04-09] MEDS: Latanoprost 0.005% Ophth Soln 2.5 ML Bottle EYEBOTH SCH (22:08)
[2021-04-09] MEDS: Dorzolamide/Timolol 2%-0.5% Ophth Soln 10 ML Bottle EYEBOTH SCH (22:08)
[2021-04-09] MEDS: Docusate Sodium 100 MG Cap PO SCH (22:08)
[2021-04-09] MEDS: Piperacillin/Tazobactam 4.5 GM in Sodium Chloride 0.9% 100 ML IV SCH (22:09)
[2021-04-10] MEDS: Insulin Lispro 100 Unit/ML 3 ML KwikPen SUBCUT SCH ×4 (06:37→22:15)
[2021-04-10] MEDS: Levothyroxine 112 MCG Tab PO SCH (06:38)
[2021-04-10] MEDS: Furosemide 40 MG/4 ML VIAL IVPUSH SCH ×2 (06:38→13:13)
[2021-04-10] MEDS: Levothyroxine 25 MCG Tab PO SCH (06:39)
[2021-04-10] MEDS: Piperacillin/Tazobactam 4.5 GM in Sodium Chloride 0.9% 100 ML IV SCH ×3 (06:39→22:16)
[2021-04-10] MEDS: Gabapentin 300 MG Cap PO SCH (09:28)
[2021-04-10] MEDS: Acetaminophen/HYDROcodone 325-5 MG Tab PO SCH ×2 (09:28→22:13)
[2021-04-10] MEDS: Apixaban 2.5 MG Tab PO SCH ×2 (09:31→22:14)
[2021-04-10] MEDS: Cholecalciferol (Vitamin D3) 25 MCG Tab PO SCH (09:31)
[2021-04-10] MEDS: Multivitamin Tab PO SCH (09:31)
[2021-04-10] MEDS: Pantoprazole 40 MG Tab.CR PO SCH (09:32)
[2021-04-10] MEDS: Docusate Sodium 100 MG Cap PO SCH ×2 (09:32→22:15)
[2021-04-10] MEDS: Clopidogrel 75 MG Tab PO SCH (09:32)
[2021-04-10] MEDS: Folic Acid 1 MG Tab PO SCH (09:32)
[2021-04-10] MEDS: Tacrolimus 0.5 MG Cap PO SCH (09:37)
[2021-04-10] MEDS: Dorzolamide/Timolol 2%-0.5% Ophth Soln 10 ML Bottle EYEBOTH SCH ×2 (09:38→22:15)
[2021-04-10] MEDS: Silver Sulfadiazine 1% Crm 50 GM Tube TOP SCH (09:45)
[2021-04-10] MEDS: Carvedilol 12.5 MG Tab PO SCH ×2 (12:07→22:09)
[2021-04-10] MEDS ORDERED: Magnesium Sulfate (4.06 MEQ/ML) 1 GM/2 ML SDV IM ONE (15:35)
[2021-04-10] MEDS: Spironolactone 25 MG Tab PO SCH ×2 (15:47→22:14)
[2021-04-10] MEDS ORDERED: Magnesium Sulfate/Water 4 GM in Premix Bag 1 BAG IV ONE (16:00)
[2021-04-10] MEDS: Tacrolimus 1 MG Cap PO SCH (17:46)
[2021-04-10] MEDS: atorvaSTATin 40 MG Tab PO SCH (22:08)
[2021-04-10] MEDS: Melatonin 3 MG Tab PO SCH (22:12)
[2021-04-10] MEDS: Sertraline 50 MG Tab PO SCH (22:14)
[2021-04-10] MEDS: Latanoprost 0.005% Ophth Soln 2.5 ML Bottle EYEBOTH SCH (22:15)
[2021-04-11] MEDS: Levothyroxine 25 MCG Tab PO SCH (06:58)
[2021-04-11] MEDS: Piperacillin/Tazobactam 4.5 GM in Sodium Chloride 0.9% 100 ML IV SCH (06:58)
[2021-04-11] MEDS: Levothyroxine 112 MCG Tab PO SCH (06:58)
[2021-04-11] MEDS ORDERED: Furosemide 40 MG/4 ML VIAL IVPUSH SCH (09:00)
[2021-04-11] MEDS: Insulin Lispro 100 Unit/ML 3 ML KwikPen SUBCUT SCH ×4 (09:16→21:47)
[2021-04-11] MEDS: Carvedilol 12.5 MG Tab PO SCH ×2 (09:18→21:44)
[2021-04-11] MEDS: Acetaminophen/HYDROcodone 325-5 MG Tab PO SCH ×3 (09:18→21:45)
[2021-04-11] MEDS: Cholecalciferol (Vitamin D3) 25 MCG Tab PO SCH (09:20)
[2021-04-11] MEDS: Apixaban 2.5 MG Tab PO SCH ×2 (09:20→21:44)
[2021-04-11] MEDS: Clopidogrel 75 MG Tab PO SCH (09:20)
[2021-04-11] MEDS: Folic Acid 1 MG Tab PO SCH (09:20)
[2021-04-11] MEDS: Pantoprazole 40 MG Tab.CR PO SCH (09:21)
[2021-04-11] MEDS: Spironolactone 25 MG Tab PO SCH (09:21)
[2021-04-11] MEDS: Docusate Sodium 100 MG Cap PO SCH ×2 (09:21→21:46)
[2021-04-11] MEDS: Gabapentin 300 MG Cap PO SCH ×2 (09:21→21:46)
[2021-04-11] MEDS: Multivitamin Tab PO SCH (09:21)
[2021-04-11] MEDS: Dorzolamide/Timolol 2%-0.5% Ophth Soln 10 ML Bottle EYEBOTH SCH ×2 (09:23→21:46)
[2021-04-11] MEDS: Tacrolimus 0.5 MG Cap PO SCH (09:26)
[2021-04-11] MEDS: Silver Sulfadiazine 1% Crm 50 GM Tube TOP SCH (09:27)
[2021-04-11] MEDS ORDERED: Sacubitril/Valsartan 1 EACH Tablet PO SCH (10:30)
[2021-04-11] MEDS: Tacrolimus 1 MG Cap PO SCH (17:27)
[2021-04-11] MEDS: Melatonin 3 MG Tab PO SCH (21:43)
[2021-04-11] MEDS: atorvaSTATin 40 MG Tab PO SCH (21:44)
[2021-04-11] MEDS: Sertraline 50 MG Tab PO SCH (21:46)
[2021-04-11] MEDS: Latanoprost 0.005% Ophth Soln 2.5 ML Bottle EYEBOTH SCH (21:47)
[2021-04-12] MEDS: Levothyroxine 112 MCG Tab PO SCH (06:13)
[2021-04-12] MEDS: Levothyroxine 25 MCG Tab PO SCH (06:14)
[2021-04-12] MEDS: Insulin Lispro 100 Unit/ML 3 ML KwikPen SUBCUT SCH ×4 (08:15→21:20)
[2021-04-12] MEDS ORDERED: Lisinopril 2.5 MG Tab PO SCH (09:00)
[2021-04-12] MEDS: Acetaminophen/HYDROcodone 325-5 MG Tab PO SCH ×3 (09:54→21:23)
[2021-04-12] MEDS: Apixaban 2.5 MG Tab PO SCH ×2 (09:55→21:22)
[2021-04-12] MEDS: Pantoprazole 40 MG Tab.CR PO SCH (09:55)
[2021-04-12] MEDS: Clopidogrel 75 MG Tab PO SCH (09:55)
[2021-04-12] MEDS: Cholecalciferol (Vitamin D3) 25 MCG Tab PO SCH (09:55)
[2021-04-12] MEDS: Gabapentin 300 MG Cap PO SCH ×2 (09:56→21:23)
[2021-04-12] MEDS: Docusate Sodium 100 MG Cap PO SCH ×2 (09:56→21:24)
[2021-04-12] MEDS: Folic Acid 1 MG Tab PO SCH (09:56)
[2021-04-12] MEDS: Multivitamin Tab PO SCH (09:56)
[2021-04-12] MEDS: Carvedilol 12.5 MG Tab PO SCH ×2 (09:57→21:22)
[2021-04-12] MEDS: Furosemide 40 MG Tab PO SCH (09:58)
[2021-04-12] MEDS: Dorzolamide/Timolol 2%-0.5% Ophth Soln 10 ML Bottle EYEBOTH SCH ×2 (09:59→21:24)
[2021-04-12] MEDS: Silver Sulfadiazine 1% Crm 50 GM Tube TOP SCH (10:02)
[2021-04-12] MEDS: Tacrolimus 0.5 MG Cap PO SCH (10:28)
[2021-04-12] MEDS: Losartan 25 MG Tab PO SCH (13:04)
[2021-04-12] MEDS ORDERED: Sodium Chloride 0.9% 250 ML IV ONE (13:05)
[2021-04-12] MEDS: Tacrolimus 1 MG Cap PO SCH (18:20)
[2021-04-12] MEDS: Sertraline 50 MG Tab PO SCH (21:22)
[2021-04-12] MEDS: Melatonin 3 MG Tab PO SCH (21:22)
[2021-04-12] MEDS: atorvaSTATin 40 MG Tab PO SCH (21:23)
[2021-04-12] MEDS: Latanoprost 0.005% Ophth Soln 2.5 ML Bottle EYEBOTH SCH (21:24)
[2021-04-13] MEDS: Levothyroxine 25 MCG Tab PO SCH (06:16)
[2021-04-13] MEDS: Levothyroxine 112 MCG Tab PO SCH (06:16)
[2021-04-13] MEDS: Insulin Lispro 100 Unit/ML 3 ML KwikPen SUBCUT SCH ×4 (08:36→20:16)
[2021-04-13] MEDS: Acetaminophen/HYDROcodone 325-5 MG Tab PO SCH ×3 (08:37→20:06)
[2021-04-13] MEDS: Gabapentin 300 MG Cap PO SCH (08:39)
[2021-04-13] MEDS: Carvedilol 12.5 MG Tab PO SCH (08:41)
[2021-04-13] MEDS: Docusate Sodium 100 MG Cap PO SCH ×2 (08:41→20:05)
[2021-04-13] MEDS: Cholecalciferol (Vitamin D3) 25 MCG Tab PO SCH (08:41)
[2021-04-13] MEDS: Clopidogrel 75 MG Tab PO SCH (08:41)
[2021-04-13] MEDS: Pantoprazole 40 MG Tab.CR PO SCH (08:41)
[2021-04-13] MEDS: Potassium Chloride 20 MEQ Tab.ER PO SCH ×2 (08:44→20:07)
[2021-04-13] MEDS: Apixaban 2.5 MG Tab PO SCH ×2 (08:44→20:08)
[2021-04-13] MEDS: Furosemide 40 MG Tab PO SCH (08:44)
[2021-04-13] MEDS: Folic Acid 1 MG Tab PO SCH (08:44)
[2021-04-13] MEDS: Multivitamin Tab PO SCH (08:45)
[2021-04-13] MEDS: Losartan 25 MG Tab PO SCH (08:45)
[2021-04-13] MEDS: Dorzolamide/Timolol 2%-0.5% Ophth Soln 10 ML Bottle EYEBOTH SCH ×2 (08:46→20:08)
[2021-04-13] MEDS: Tacrolimus 0.5 MG Cap PO SCH (08:48)
[2021-04-13] MEDS: Silver Sulfadiazine 1% Crm 50 GM Tube TOP SCH (09:56)
[2021-04-13] MEDS ORDERED: Furosemide 20 MG/2 ML VIAL IVPUSH ONE (14:30)
[2021-04-13] MEDS: Albumin 25% 12.5 GM in Premix Bag 1 BAG IV SCH ×2 (14:55→15:56)
[2021-04-13] MEDS ORDERED: Phenol 1.4% Oral Spray 177 ML Bottle MUCMEM PRN (16:50)
[2021-04-13] MEDS: cefTRIAXone 2 GM in Sodium Chloride 0.9% 100 ML IV SCH (17:05)
[2021-04-13] MEDS: Doxycycline 100 MG in Sodium Chloride 0.9% 100 ML IV SCH (17:06)
[2021-04-13] MEDS: Benzocaine/Cetylpyridinium/Menthol Lozenge MUCMEM PRN ×2 (17:10→20:29)
[2021-04-13] MEDS: Tacrolimus 1 MG Cap PO SCH (17:53)
[2021-04-13] MEDS: Sertraline 50 MG Tab PO SCH (20:06)
[2021-04-13] MEDS: atorvaSTATin 40 MG Tab PO SCH (20:07)
[2021-04-13] MEDS: Melatonin 3 MG Tab PO SCH (20:08)
[2021-04-13] MEDS: Latanoprost 0.005% Ophth Soln 2.5 ML Bottle EYEBOTH SCH (20:08)
[2021-04-13 21:15] LABS: CORONAVIRUS COVID-19 NAA NEGATIVE (NEGATIVE)
[2021-04-14] MEDS: Doxycycline 100 MG in Sodium Chloride 0.9% 100 ML IV SCH ×2 (03:20→17:31)
[2021-04-14] MEDS: Levothyroxine 112 MCG Tab PO SCH (06:05)
[2021-04-14] MEDS: Levothyroxine 25 MCG Tab PO SCH (06:05)
[2021-04-14] MEDS: Furosemide 20 MG/2 ML VIAL IVPUSH SCH ×2 (06:07→13:42)
[2021-04-14] MEDS: Insulin Lispro 100 Unit/ML 3 ML KwikPen SUBCUT SCH ×4 (08:15→21:48)
[2021-04-14] MEDS: Acetaminophen/HYDROcodone 325-5 MG Tab PO SCH ×3 (08:17→21:49)
[2021-04-14] MEDS: Docusate Sodium 100 MG Cap PO SCH ×2 (08:18→21:49)
[2021-04-14] MEDS: Apixaban 2.5 MG Tab PO SCH ×2 (08:18→21:49)
[2021-04-14] MEDS: Multivitamin Tab PO SCH (08:18)
[2021-04-14] MEDS: Clopidogrel 75 MG Tab PO SCH (08:18)
[2021-04-14] MEDS: Cholecalciferol (Vitamin D3) 25 MCG Tab PO SCH (08:18)
[2021-04-14] MEDS: Folic Acid 1 MG Tab PO SCH (08:18)
[2021-04-14] MEDS: Pantoprazole 40 MG Tab.CR PO SCH (08:18)
[2021-04-14] MEDS: Dorzolamide/Timolol 2%-0.5% Ophth Soln 10 ML Bottle EYEBOTH SCH ×2 (08:19→21:50)
[2021-04-14] MEDS: Tacrolimus 0.5 MG Cap PO SCH (08:22)
[2021-04-14] MEDS: Silver Sulfadiazine 1% Crm 50 GM Tube TOP SCH (08:23)
[2021-04-14] MEDS ORDERED: Magnesium Sulfate/Water 2 GM in Premix Bag 1 BAG IV ONE (12:39)
[2021-04-14] MEDS: cefTRIAXone 2 GM in Sodium Chloride 0.9% 100 ML IV SCH (15:01)
[2021-04-14] MEDS: Tacrolimus 1 MG Cap PO SCH (17:31)
[2021-04-14] MEDS: Melatonin 3 MG Tab PO SCH (21:48)
[2021-04-14] MEDS: Sertraline 50 MG Tab PO SCH (21:49)
[2021-04-14] MEDS: atorvaSTATin 40 MG Tab PO SCH (21:49)
[2021-04-14] MEDS: Latanoprost 0.005% Ophth Soln 2.5 ML Bottle EYEBOTH SCH (21:50)
[2021-04-15] MEDS: Doxycycline 100 MG in Sodium Chloride 0.9% 100 ML IV SCH ×3 (04:15→16:31)
[2021-04-15] MEDS: Furosemide 20 MG/2 ML VIAL IVPUSH SCH ×2 (05:48→13:25)
[2021-04-15] MEDS: Levothyroxine 25 MCG Tab PO SCH (05:48)
[2021-04-15] MEDS: Levothyroxine 112 MCG Tab PO SCH (05:48)
[2021-04-15] MEDS ORDERED: Magnesium Sulfate/Water 2 GM in Premix Bag 1 BAG IV ONE (07:52)
[2021-04-15] MEDS: Acetaminophen/HYDROcodone 325-5 MG Tab PO SCH ×3 (08:31→20:43)
[2021-04-15] MEDS: Docusate Sodium 100 MG Cap PO SCH ×2 (08:36→20:46)
[2021-04-15] MEDS: Magnesium Oxide 400 MG Tab PO SCH (08:37)
[2021-04-15] MEDS: Clopidogrel 75 MG Tab PO SCH (08:38)
[2021-04-15] MEDS: Cholecalciferol (Vitamin D3) 25 MCG Tab PO SCH (08:38)
[2021-04-15] MEDS: Folic Acid 1 MG Tab PO SCH (08:39)
[2021-04-15] MEDS: Pantoprazole 40 MG Tab.CR PO SCH (08:39)
[2021-04-15] MEDS: Multivitamin Tab PO SCH (08:39)
[2021-04-15] MEDS: Apixaban 2.5 MG Tab PO SCH ×2 (08:39→20:45)
[2021-04-15] MEDS: Dorzolamide/Timolol 2%-0.5% Ophth Soln 10 ML Bottle EYEBOTH SCH ×2 (08:40→20:43)
[2021-04-15] MEDS: Silver Sulfadiazine 1% Crm 50 GM Tube TOP SCH (08:43)
[2021-04-15] MEDS: Insulin Lispro 100 Unit/ML 3 ML KwikPen SUBCUT SCH ×4 (08:44→20:48)
[2021-04-15] MEDS: Insulin Glargine,Hum.Rec.Anlog 100 UNIT/ML 3 ML Pen SUBCUT SCH (08:45)
[2021-04-15] MEDS ORDERED: Furosemide 20 MG/2 ML VIAL IVPUSH ONE ×2 (09:31→14:45)
[2021-04-15] MEDS: Tacrolimus 0.5 MG Cap PO SCH (09:41)
[2021-04-15] MEDS: Albumin 25% 12.5 GM in Premix Bag 1 BAG IV SCH ×2 (10:57→11:51)
[2021-04-15] MEDS ORDERED: Furosemide 40 MG/4 ML VIAL IVPUSH ONE (15:00)
[2021-04-15] MEDS: cefTRIAXone 2 GM in Sodium Chloride 0.9% 100 ML IV SCH (15:43)
[2021-04-15] MEDS: Tacrolimus 1 MG Cap PO SCH (17:59)
[2021-04-15] MEDS: Latanoprost 0.005% Ophth Soln 2.5 ML Bottle EYEBOTH SCH (20:43)
[2021-04-15] MEDS: Melatonin 3 MG Tab PO SCH (20:44)
[2021-04-15] MEDS: Sertraline 50 MG Tab PO SCH (20:44)
[2021-04-15] MEDS: atorvaSTATin 40 MG Tab PO SCH (20:45)
[2021-04-16] MEDS: Doxycycline 100 MG in Sodium Chloride 0.9% 100 ML IV SCH ×2 (03:56→17:12)
[2021-04-16] MEDS: HYDROmorphone 2 MG Tab PO PRN (05:09)
[2021-04-16] MEDS: Levothyroxine 112 MCG Tab PO SCH (05:10)
[2021-04-16] MEDS: Levothyroxine 25 MCG Tab PO SCH (05:10)
[2021-04-16] MEDS: Furosemide 40 MG/4 ML VIAL IVPUSH SCH ×2 (05:10→14:43)
[2021-04-16] MEDS ORDERED: Magnesium Sulfate/Water 4 GM in Premix Bag 1 BAG IV ONE (09:00)
[2021-04-16] MEDS: Insulin Glargine,Hum.Rec.Anlog 100 UNIT/ML 3 ML Pen SUBCUT SCH (09:39)
[2021-04-16] MEDS: Insulin Lispro 100 Unit/ML 3 ML KwikPen SUBCUT SCH ×4 (09:40→20:57)
[2021-04-16] MEDS: Magnesium Oxide 400 MG Tab PO SCH (09:41)
[2021-04-16] MEDS: Clopidogrel 75 MG Tab PO SCH (09:41)
[2021-04-16] MEDS: Apixaban 2.5 MG Tab PO SCH ×2 (09:41→20:55)
[2021-04-16] MEDS: Folic Acid 1 MG Tab PO SCH (09:42)
[2021-04-16] MEDS: Pantoprazole 40 MG Tab.CR PO SCH (09:42)
[2021-04-16] MEDS: Acetaminophen/HYDROcodone 325-5 MG Tab PO SCH ×3 (09:42→20:57)
[2021-04-16] MEDS: Docusate Sodium 100 MG Cap PO SCH ×2 (09:43→20:53)
[2021-04-16] MEDS: Multivitamin Tab PO SCH (09:43)
[2021-04-16] MEDS: Cholecalciferol (Vitamin D3) 25 MCG Tab PO SCH (09:43)
[2021-04-16] MEDS: Tacrolimus 0.5 MG Cap PO SCH (09:44)
[2021-04-16] MEDS: Dorzolamide/Timolol 2%-0.5% Ophth Soln 10 ML Bottle EYEBOTH SCH ×2 (09:45→20:54)
[2021-04-16] MEDS: Silver Sulfadiazine 1% Crm 50 GM Tube TOP SCH (11:34)
[2021-04-16] MEDS ORDERED: Albumin 25% 12.5 GM in Premix Bag 1 BAG IV SCH (15:00)
[2021-04-16] MEDS: cefTRIAXone 2 GM in Sodium Chloride 0.9% 100 ML IV SCH (16:17)
[2021-04-16] MEDS: Albumin 25% 12.5 GM in Premix Bag 1 BAG IV SCH ×2 (18:16→19:20)
[2021-04-16] MEDS: Tacrolimus 1 MG Cap PO SCH (18:23)
[2021-04-16] MEDS: Melatonin 3 MG Tab PO SCH (20:54)
[2021-04-16] MEDS: Latanoprost 0.005% Ophth Soln 2.5 ML Bottle EYEBOTH SCH (20:54)
[2021-04-16] MEDS: Potassium Chloride 20 MEQ Tab.ER PO SCH (20:55)
[2021-04-16] MEDS: atorvaSTATin 40 MG Tab PO SCH (20:55)
[2021-04-16] MEDS: Sertraline 50 MG Tab PO SCH (20:56)
[2021-04-17] MEDS: Doxycycline 100 MG in Sodium Chloride 0.9% 100 ML IV SCH (04:33)
[2021-04-17] MEDS: Levothyroxine 112 MCG Tab PO SCH (05:36)
[2021-04-17] MEDS: Furosemide 40 MG/4 ML VIAL IVPUSH SCH ×2 (05:37→14:26)
[2021-04-17] MEDS: Levothyroxine 25 MCG Tab PO SCH (05:37)
[2021-04-17] MEDS: Insulin Lispro 100 Unit/ML 3 ML KwikPen SUBCUT SCH ×4 (08:42→21:17)
[2021-04-17] MEDS: Dorzolamide/Timolol 2%-0.5% Ophth Soln 10 ML Bottle EYEBOTH SCH ×2 (08:43→21:14)
[2021-04-17] MEDS: Insulin Glargine,Hum.Rec.Anlog 100 UNIT/ML 3 ML Pen SUBCUT SCH (08:43)
[2021-04-17] MEDS: Potassium Chloride 20 MEQ Tab.ER PO SCH ×2 (08:44→21:16)
[2021-04-17] MEDS: Multivitamin Tab PO SCH (08:44)
[2021-04-17] MEDS: Magnesium Oxide 400 MG Tab PO SCH (08:46)
[2021-04-17] MEDS: Folic Acid 1 MG Tab PO SCH (08:46)
[2021-04-17] MEDS: Pantoprazole 40 MG Tab.CR PO SCH (08:46)
[2021-04-17] MEDS: Apixaban 2.5 MG Tab PO SCH ×2 (08:46→21:15)
[2021-04-17] MEDS: Clopidogrel 75 MG Tab PO SCH (08:46)
[2021-04-17] MEDS: Cholecalciferol (Vitamin D3) 25 MCG Tab PO SCH (08:46)
[2021-04-17] MEDS: Tacrolimus 0.5 MG Cap PO SCH (08:48)
[2021-04-17] MEDS: Silver Sulfadiazine 1% Crm 50 GM Tube TOP SCH (08:48)
[2021-04-17] MEDS: Acetaminophen/HYDROcodone 325-5 MG Tab PO SCH ×3 (08:49→21:15)
[2021-04-17] MEDS: Docusate Sodium 100 MG Cap PO SCH ×2 (08:54→21:14)
[2021-04-17] MEDS: cefTRIAXone 2 GM in Sodium Chloride 0.9% 100 ML IV SCH (14:35)
[2021-04-17] MEDS: Tacrolimus 1 MG Cap PO SCH (17:35)
[2021-04-17] MEDS: Sertraline 50 MG Tab PO SCH (21:14)
[2021-04-17] MEDS: Latanoprost 0.005% Ophth Soln 2.5 ML Bottle EYEBOTH SCH (21:14)
[2021-04-17] MEDS: Melatonin 3 MG Tab PO SCH (21:16)
[2021-04-17] MEDS: atorvaSTATin 40 MG Tab PO SCH (21:16)
[2021-04-18] MEDS: HYDROmorphone 2 MG Tab PO PRN (03:50)
[2021-04-18] MEDS: Levothyroxine 25 MCG Tab PO SCH (06:29)
[2021-04-18] MEDS: Levothyroxine 112 MCG Tab PO SCH (06:29)
[2021-04-18] MEDS: Furosemide 40 MG/4 ML VIAL IVPUSH SCH (06:29)
[2021-04-18] MEDS: Docusate Sodium 100 MG Cap PO SCH (08:39)
[2021-04-18] MEDS: Acetaminophen/HYDROcodone 325-5 MG Tab PO SCH (08:40)
[2021-04-18] MEDS: Cholecalciferol (Vitamin D3) 25 MCG Tab PO SCH (08:42)
[2021-04-18] MEDS: Pantoprazole 40 MG Tab.CR PO SCH (08:42)
[2021-04-18] MEDS: Clopidogrel 75 MG Tab PO SCH (08:42)
[2021-04-18] MEDS: Folic Acid 1 MG Tab PO SCH (08:42)
[2021-04-18] MEDS: Multivitamin Tab PO SCH (08:43)
[2021-04-18] MEDS: Magnesium Oxide 400 MG Tab PO SCH (08:43)
[2021-04-18] MEDS: Apixaban 2.5 MG Tab PO SCH (08:43)
[2021-04-18] MEDS: Tacrolimus 0.5 MG Cap PO SCH (08:44)
[2021-04-18] MEDS: Dorzolamide/Timolol 2%-0.5% Ophth Soln 10 ML Bottle EYEBOTH SCH (08:44)
[2021-04-18] MEDS: Insulin Lispro 100 Unit/ML 3 ML KwikPen SUBCUT SCH (08:45)
[2021-04-18] MEDS: Insulin Glargine,Hum.Rec.Anlog 100 UNIT/ML 3 ML Pen SUBCUT SCH (08:46)
== END 2021-04-18 13:15 | disposition home or self-care (01) | DRG 291 ==
LOC: JD.ED 09:31 → JD.MS 14:50
PROVIDERS: ADMIT Pediatrics; ATTEND Pediatrics
DX: I13.0 Hypertensive heart and chronic kidney disease with heart failure and stage 1 through stage 4 chronic kidney disease, or unspecified chronic kidney disease (principal); R09.02 Hypoxemia; I50.9 Heart failure, unspecified; J18.9 Pneumonia, unspecified organism; E78.00 Pure hypercholesterolemia, unspecified; I13.2 Hypertensive heart and chronic kidney disease with heart failure and with stage 5 chronic kidney disease, or end stage renal disease; N18.6 End stage renal disease; Z99.2 Dependence on renal dialysis; Z94.0 Kidney transplant status; D84.9 Immunodeficiency, unspecified; E46 Unspecified protein-calorie malnutrition; L97.929 Non-pressure chronic ulcer of unspecified part of left lower leg with unspecified severity; M19.90 Unspecified osteoarthritis, unspecified site; L97.919 Non-pressure chronic ulcer of unspecified part of right lower leg with unspecified severity; K59.09 Other constipation; Z20.822 Contact with and (suspected) exposure to COVID-19; I50.813 Acute on chronic right heart failure; Z66 Do not resuscitate; K21.9 Gastro-esophageal reflux disease without esophagitis; E88.09 Other disorders of plasma-protein metabolism, not elsewhere classified; Z86.718 Personal history of other venous thrombosis and embolism; I25.10 Atherosclerotic heart disease of native coronary artery without angina pectoris; E83.39 Other disorders of phosphorus metabolism; Z79.02 Long term (current) use of antithrombotics/antiplatelets; M54.9 Dorsalgia, unspecified; G89.29 Other chronic pain; M81.0 Age-related osteoporosis without current pathological fracture; F41.9 Anxiety disorder, unspecified; F32.A Depression, unspecified; E11.649 Type 2 diabetes mellitus with hypoglycemia without coma; E03.9 Hypothyroidism, unspecified; E66.9 Obesity, unspecified; E11.22 Type 2 diabetes mellitus with diabetic chronic kidney disease; N18.31 Chronic kidney disease, stage 3a; Z96.659 Presence of unspecified artificial knee joint; E11.622 Type 2 diabetes mellitus with other skin ulcer; E87.6 Hypokalemia; E83.42 Hypomagnesemia; R33.9 Retention of urine, unspecified; D63.1 Anemia in chronic kidney disease; Z79.01 Long term (current) use of anticoagulants; Z86.73 Personal history of transient ischemic attack (TIA), and cerebral infarction without residual deficits; Z79.4 Long term (current) use of insulin; Z88.8 Allergy status to other drugs, medicaments and biological substances; Z79.890 Hormone replacement therapy; Z79.899 Other long term (current) drug therapy; Z98.84 Bariatric surgery status; Z90.710 Acquired absence of both cervix and uterus
CPT/HCPCS: 0240U; 0241U; 36415; 36600; 51702; 51798; 71045; 80048; 80053; 80197; 81001; 81003; 82803; 82947; 83036; 83605; 83735; 83880; 84100; 84145; 84443; 84484; 85025; 86140; 86738; 87040; 87086; 87088; 87186; 87641; 87899; 93005; 93306; 94660; 94760; 94761; 96374; 96375; 96376; 97110; 97162; 97530; 97597; 97598; 99285; 36410; 93010; A9270-GY; J0696; J1815; J1940; J2543; J3475; J3490; J7030; J7500; J7507; P9047; U0002

== ENCOUNTER 2022-07-20 12:35 | Emergency (ER) | payer MEDICARE, MEDICAID ==
[2022-07-20 13:44] LABS: BASOPHILS ABSOLUTE AUTO 0.02 K/mm3 (0.01-0.08); BASOPHILS PERCENT AUTO 0.5 % (0.1-1.2); EOSINOPHILS ABSOLUTE AUTO 0.04 K/mm3 (0.04-0.36); HEMATOCRIT 35.5 % (34.1-44.9); HEMOGLOBIN 11.2 gm/dl (11.2-15.7); IMMATURE GRAN ABSOLUTE AUTO 0.01 K/mm3 (0.00-0.10); IMMATURE GRAN PERCENT AUTO 0.3 % (<=1.0); LYMPHOCYTES PERCENT AUTO 49.2 % (19.3-51.7); MEAN CORPUSCULAR HEMOGLOBIN 37.7 pg (25.6-32.2); MEAN CORPUSCULAR HGB CONC 31.5 g/dl (32.2-35.5); MEAN CORPUSCULAR VOLUME 119.5 fl (79.4-94.8); MEAN PLATELET VOLUME 8.5 fl (9.4-12.3); MONOCYTES ABSOLUTE AUTO 0.23 K/mm3 (0.24-0.36); NEUTROPHILS ABSOLUTE AUTO 1.66 K/mm3 (1.56-6.13); PLATELET COUNT,PLT 183 K/mm3 (182-369); RED BLOOD CELL COUNT 2.97 M/mm3 (3.98-5.22); WHITE BLOOD CELL COUNT,WBC 3.86 K/mm3 (3.98-10.04)
[2022-07-20 14:12] LABS: A/G RATIO 0.5 (1-2); ALANINE AMINOTRANSFERASE,ALT 21 U/L (14-59); ALBUMIN 1.3 g/dl (3.4-5.0); ALKALINE PHOSPHATASE 126 U/L (46-116); ANION GAP 8.9 (5-15); ASPARTATE AMNIOTRANSFERASE,AST 44 U/L (15-37); BILIRUBIN TOTAL 0.5 mg/dL (0.2-1.0); BLOOD UREA NITROGEN,BUN 40 mg/dL (7-18); BUN/CREATININE RATIO 22.2 (14-18); CALCIUM 7.8 mg/dL (8.5-10.1); CARBON DIOXIDE,CO2 28 mEq/L (21-32); CHLORIDE,CL 108 mEq/L (98-107); CREATININE 1.8 mg/dL (0.55-1.02); ESTIMATED GFR 29 mL/min (>60); POTASSIUM,K 3.9 mEq/L (3.5-5.1); PROTEIN TOTAL,TP 4.1 g/dl (6.4-8.2); SODIUM,NA 141 mEq/L (136-145); TROPONIN I HIGH SENSITIVITY 13 pg/mL (<=51)
[2022-07-20 14:31] LABS: SLIDE REVIEW ABNORMAL SMEAR
[2022-07-20 14:37] LABS: GLUCOSE RANDOM 44 mg/dL (70-99)
[2022-07-20] MEDS ORDERED: 50% Dextrose in Water 50 ML Syringe IVPUSH ONE ×2 (15:25→16:50)
[2022-07-20] MEDS ORDERED: cefTRIAXone 1 GM in Sodium Chloride 0.9% 100 ML IV ONE (15:26)
[2022-07-20] MEDS ORDERED: 50% Dextrose in Water 50 ML Syringe IVPUSH PRN (16:50)
== END 2022-07-20 20:28 ==
LOC: JD.ED 12:35
DX: I95.89 Other hypotension (principal); J18.9 Pneumonia, unspecified organism; E11.9 Type 2 diabetes mellitus without complications; I10 Essential (primary) hypertension; E78.00 Pure hypercholesterolemia, unspecified; J45.909 Unspecified asthma, uncomplicated; K21.9 Gastro-esophageal reflux disease without esophagitis; E66.9 Obesity, unspecified; Z68.30 Body mass index [BMI] 30.0-30.9, adult; Z88.8 Allergy status to other drugs, medicaments and biological substances; Z79.899 Other long term (current) drug therapy; Z79.02 Long term (current) use of antithrombotics/antiplatelets; Z86.73 Personal history of transient ischemic attack (TIA), and cerebral infarction without residual deficits
CPT/HCPCS: 36415; 71045; 80053; 82947; 84484; 85025; 93005; 96365; 96375; 96376; 99285; J0696; J3490; 99284

== ENCOUNTER 2022-07-21 10:05 | Emergency (ER) | payer MEDICARE, MEDICAID ==
[2022-07-21] MEDS ORDERED: 50% Dextrose in Water 50 ML Syringe IVPUSH STA (10:50)
[2022-07-21] MEDS: Sodium Chloride 0.9% 10 ML Syringe FLUSH PRN ×2 (11:50→13:13)
== END 2022-07-21 16:49 ==
LOC: JD.ED 10:05
DX: E11.649 Type 2 diabetes mellitus with hypoglycemia without coma (principal); R60.0 Localized edema; E78.00 Pure hypercholesterolemia, unspecified; I10 Essential (primary) hypertension; I25.10 Atherosclerotic heart disease of native coronary artery without angina pectoris; J45.909 Unspecified asthma, uncomplicated; K21.9 Gastro-esophageal reflux disease without esophagitis; M19.90 Unspecified osteoarthritis, unspecified site; E11.40 Type 2 diabetes mellitus with diabetic neuropathy, unspecified; E03.9 Hypothyroidism, unspecified; E66.9 Obesity, unspecified; Z68.24 Body mass index [BMI] 24.0-24.9, adult; Z86.16 Personal history of COVID-19; Z88.6 Allergy status to analgesic agent; Z79.01 Long term (current) use of anticoagulants; Z79.02 Long term (current) use of antithrombotics/antiplatelets; Z79.4 Long term (current) use of insulin; Z79.899 Other long term (current) drug therapy
CPT/HCPCS: 73060-26-RT; 73060-RT; 73090-26-RT; 73090-RT; 82947; 96374; 99285-25; J3490